=== PATIENT | female | born 1945 | race Caucasian/White ===

== ENCOUNTER 2017-03-21 09:52 | Outpatient (RCR) | payer OTHER, MEDICARE, SELFPAY | END 2017-04-06 23:59 | LOC: WC 09:52 | PROVIDERS: Family Provider Family Medicine; PCP Family Medicine; Visit Provider Nurse Practitioner | DX: Z09 Encounter for follow-up examination after completed treatment for conditions other than malignant neoplasm (principal) ==

== ENCOUNTER → 2017-08-22 11:58 | Outpatient (CLI) | payer MEDICARE, OTHER, SELFPAY ==
--- NOTE | 2017-08-22 12:55 | RAD_ITS ---
STUDY: SWALLOWING STUDY REASON FOR EXAM: Female, 71 years old. Dysphagia. TECHNIQUE: The examination was performed with Speech Pathology in attendance. Under fluoroscopic observation, the patient ingested thin barium, thick barium, barium pudding, and barium coated cracker. FLUOROSCOPY TIME: 1:55 minutes/seconds. 1261 fluoroscopic images were obtained. RADIOLOGIST INVOLVEMENT: Radiologist was present and providing direct supervision. COMPARISON: None. FINDINGS: The following was observed during swallowing of the various mixtures of barium: Prominence of the cricopharyngeus muscle. Thin Barium: Transient penetration with ingestion of thin liquids. Barium Pudding: There was no evidence of aspiration or laryngeal penetration. Barium Coated Cracker: There was no evidence of aspiration or laryngeal penetration. RAD/Swallowing Function w/Video IMPRESSION: Transient penetration with ingestion of thin liquids. Hypertrophy of the cricopharyngeus muscle. The swallow study findings were discussed with the patient by the speech pathologist at the conclusion of the examination. Please see speech pathology report for more information and recommendations. Electronically Signed: Saul Lackey MD at 15:01 EDT Tel [phone], Service support ,
--- NOTE | 2017-08-22 13:00 | SP.MBSS_ITS ---
PRIMARY / SECONDARY DIAGNOSIS: dysphagia (R13.10) REFERRING PHYSICIAN: NATHALY Johnson CURRENT DIET: regular textures, thin liquids DENTITION: WFL MENTAL STATUS: WNL RESPIRATORY STATUS: O2 via room air PREVIOUS MODIFIED BARIUM SWALLOW STUDY: none REASON FOR REFERRAL: Patient is a 71 year old female referred for a modified barium swallow (MBS) study to objectively assess the Patients oropharyngeal swallow function under fluoroscopy secondary to reported intermittent coughing possibly attributed to PO intake, occasional belching, occasional globus sensation, along with multiple additional complaints that are unrelated to oropharyngeal or pharyngoesophageal functioning (flatulence, graft pain / discomfort). MEDICAL HISTORY: Arthritis, methicillin susceptible staphylococcus aureus infection, type 2 diabetes mellitus, hypertension, suprapubic cellulitis, abdominal abscess, back problems, sepsis STUDY FINDINGS: Patient participated in a Modified Barium Swallow (MBS) study on 08/22/2017. Dr. Lackey was the radiologist present for this evaluation. This study was recorded in the lateral view and images were sent to PACs for storage. The following consistencies were presented to this patient for analysis of oropharyngeal swallow function: thin liquids, pudding, and a regular textured, Kamila Doone cookie. Results of the MBS are as follows: PENETRATION / ASPIRATION SCALE (DAS): 1 = does not enter airway 2 = enters airway/above vocal folds/ejected 3 = enters airway/above vocal folds/not ejected 4 = enters airway/contacts vocal folds/ejected 5 = enters airway/contacts vocal folds/not ejected 6 = enters airway/below vocal folds/ejected 7 = enters airway/below vocal folds/not ejected despite effort 8 = enters airway/below vocal folds/no effort PENETRATION / ASPIRATION SCALE (SCORE): Thin liquid - 5 mL tsp.: 1 Thin liquids via cup (single sip): 2 Thin liquids via cup (single sip): 2 Thin liquids via cup (single sip): 2 Thin liquids via cup (chin tuck): 1 Thin liquids via cup (chin tuck): 1 Thin liquids via cup (chin tuck): 2 Thin liquids via cup (chin tuck): 1 Pudding via spoon: 1 Regular textured cookie: 1 Thin liquids via cup (chin tuck): 1 Thin liquids via cup (chin tuck): 1 IMPRESSION: DIAGNOSIS: mild oropharyngeal dysphagia (R13.12) ORAL PHASE CHARACTERIZED BY: LABIAL SEAL: no labial escape TONGUE CONTROL DURING BOLUS MANIPULATION: cohesive bolus between tongue to palatal seal BOLUS PREPARATION / MASTICATION: timely and efficient chewing and mashing BOLUS TRANSPORT / LINGUAL MOTION: brisk tongue motion ORAL RESIDUE: trace residue lining oral structures PHARYNGEAL PHASE CHARACTERIZED BY: INITIATION OF PHARYNGEAL SWALLOW: bolus head in valleculae at first hyoid excursion SOFT PALATE ELEVATION: no bolus between soft palate and pharyngeal wall LARYNGEAL ELEVATION: complete superior movement of thyroid cartilage with complete approximation of arytenoids cartilage to epiglottic petiole ANTERIOR HYOID EXCURSION: partial anterior movement EPIGLOTTIC MOVEMENT: intermittent partial epiglottic inversion LARYNGEAL VESTIBULE CLOSURE AT HEIGHT OF SWALLOW: complete laryngeal vestibule closure with no air/contrast in laryngeal vestibule PHARYNGEAL STRIPPING WAVE: pharyngeal stripping wave present / diminished PHARYNGOESOPHAGEAL SEGMENT OPENING: partial distension and partial duration; partial obstruction of flow TONGUE BASE RETRACTION: trace column of contrast between tongue base and posterior pharyngeal wall PHARYNGEAL RESIDUE: intermittent collection of residue within or on pharyngeal structures; trace residue within or on pharyngeal structures (valleculae, to a lesser extent the pharyngoesophageal segment opening) ESOPHAGEAL PHASE CHARACTERIZED BY: ESOPHAGEAL BOLUS CLEARANCE IN THE UPRIGHT POSITION: could not view EFFECTS OF TREATMENT STRATEGIES ATTEMPTED: Chin tuck posture = effective Reduced bolus size = effective DIET TEXTURE RECOMMENDATIONS: Will recommend a regular textured, thin liquid diet. COMPENSATORY STRATEGIES RECOMMENDED: Chin tuck, reduced bolus volume, seated upright at 90 degrees during PO intake , INTERPRETATION OF RESULTS: Patient presents with mild oropharyngeal dysphagia (R13.12) likely secondary to primary presbyphagia. Oropharyngeal profile primarily marked by mildly discoordinated pharyngeal swallow onset timing resulting in suboptimal bolus location upon swallow onset; and mild pharyngeal dysmotility attributed to mild reductions in tongue based retraction, posterior pharyngeal stripping wave action, and pharyngoesophageal segment opening. Transient penetration noted during consumption of thin liquids, with sufficient laryngeal vestibule pressure generated to expel penetrated material. All deficits ameliorated with bolus volume adjustments and execution of the chin tuck posture. Prominent cricopharyngeal bar located at the C-6 level, no effect on pharyngoesophageal motility. No aspiration appreciated throughout trials, unable to definitively rule out silent aspiration. RECOMMENDATIONS: Patient able to comprehend and express recommended intake precautions detailed above with sufficient detail to suggest high likelihood of compliance. Provided brief overview of signs and symptoms of aspiration, with recommendations for the Patient to further discuss symptoms with PCP. No further skilled speech- language services warranted at this time targeting dysphagia. ADDITIONAL COMMENTS/RECOMMENDATIONS: Results and recommendations were discussed with the Patient immediately following MBS completion, with the Patient verbalizing understanding and agreement with all recommendations and education provided. IMAGE COUNT: 1261 G-CODES: SWALLOWING [id number] Current Status: CI SWALLOWING [id number] Goal Status: CI SWALLOWING [id number] Discharge Status: CI
== END ==
PROVIDERS: Family Provider Family Medicine; PCP Family Medicine; Visit Provider Nurse Practitioner Family
DX: R13.10 Dysphagia, unspecified (principal)
CPT/HCPCS: 74230; 92611; G8996; G8997; G8998

== ENCOUNTER 2019-05-25 07:48 | Inpatient (IN) | payer MEDICARE, OTHER, SELFPAY ==
[2019-05-25 07:50] VITALS: BP 178/71; PULSE 87; RESP 18; TEMP 36.5; O2SAT 94; BMI 24.4
--- NOTE | 2019-05-25 08:04 | RAD_ITS ---
STUDY: X-RAY CHEST REASON FOR EXAM: Female, 73 years old. Fell today TECHNIQUE: Single AP portable view of the chest. COMPARISON: None. FINDINGS: The lungs are clear and expanded. Scattered calcified granulomas. There is no demonstrated pleural abnormality. Normal size heart. Normal mediastinum and ulisses. Normal visualized pulmonary arteries. There is atherosclerotic tortuosity of the aortic arch and descending thoracic aorta. There are diffuse degenerative changes of the visualized thoracic spine. Normal visualized ribs, clavicles, and shoulders. There is no demonstrated abnormality of the visualized soft tissue structures of the upper abdomen. RAD/Chest 1 View IMPRESSION: No acute abnormality is seen. Electronically Signed: Saul Lackey, at 9:08 EST , Service support ,
--- NOTE | 2019-05-25 08:04 | CT_ITS ---
STUDY: CT BRAIN WITHOUT CONTRAST REASON FOR EXAM: Female, 73 years old. FALL THIS AM, HTN, DB RADIATION DOSAGE (If Supplied By Facility): CTDIvol = ( 44.99 ) mGy, DLP = ( 762.36 ) mGycm TECHNIQUE: Transaxial CT imaging of the brain was performed without administration of intravenous contrast material. Individualized dose optimization techniques were used for this CT. COMPARISON: No relevant priors. FINDINGS: Normal soft tissue structures. Normal calvarium. There is mild cerebral atrophy with widening of the extra-axial spaces and ventricular dilatation. There are areas of decreased attenuation within the white matter tracts of the supratentorial brain, consistent with microvascular disease changes. There are small punctate calcifications of the basal ganglia which are seen in the aging brain as a normal variant. Normal brainstem. Normal cerebellum. There is no intracranial hemorrhage. There are no findings of an acute ischemic infarction. Normal visualized paranasal sinuses. CT/Brain/Head without Contrast IMPRESSION: Chronic involutional changes of the brain. Electronically Signed: Saul Lackey, at 9:05 EST , Service support ,
--- NOTE | 2019-05-25 08:04 | RAD_ITS ---
STUDY: X-RAY - PELVIS AND LEFT HIP REASON FOR EXAM: Female, 73 years old. Left hip pain s/p fall TECHNIQUE: 3 views of the pelvis and hip. COMPARISON: None. FINDINGS: Transcervical fracture of the proximal left femoral neck with cephalic migration of the distal fracture fragment. RAD/HIP, UNI W/ Pelvis 2-3 Views IMPRESSION: Transverse subcapital fracture of the proximal left femur with cephalic migration of the distal fracture fragment. Electronically Signed: Saul Lackey, at 9:08 EST , Service support ,
--- NOTE | 2019-05-25 08:11 | ED.DCSUM_ITS ---
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 states he slipped and fell. She states that she struck the left side of her head but no loss of consciousness. She also injured the left hip. She notes the left knee is sore from a previous fall. EMS notes blood sugar 500 patient states that this is not uncommon for her. Past Medical History - Allergies and Home Meds Allergies/Adverse Reactions: Allergies shellfish derived Allergy (Severe, Verified 04/28/17 09:01) swelling in throat Penicillins [PCN] Allergy (Verified 04/28/17 09:01) Shortness of breath artificial sweeteners Adverse Reaction (Uncoded 04/14/17 13:51) headaches Primary Care Physician: Baljinder Vasquez III, MD [Primary Care Provider] - Surgical History: hysterectomy, - - Back surgery, . Smoking Status: Never smoker - Family History Maternal Family History: Family History (Last Reviewed 04/28/17 @ 09:01 by Toma Fuchs) Father Arthritis Mother Diabetes Sister Diabetes Family History: Reports: No pertinent history Paternal Family History: Family History (Last Reviewed 04/28/17 @ 09:01 by Toma Fuchs) Father Arthritis Mother Diabetes Sister Diabetes Family History: Reports: No pertinent history Review of Systems General: Denies: Chills, Fever, Sweats Eyes: Denies: Visual changes - bilaterally, Diplopia ENT: Denies: Rhinorrhea, Sore throat Cardiovascular: Denies: Chest pain, Palpitations Respiratory: Denies: Dyspnea, Cough, Dyspnea on exertion Gastrointestinal: Denies: Abdominal pain, Nausea, Vomiting, Diarrhea, Melena, Hematochezia Genitourinary: Denies: Dysuria, Hematuria, Frequency Musculoskeletal: Reports: Extremity Pain. Denies: Back pain Skin: Denies: Rash, Wounds Neurological: Denies: Headache, Weakness, Numbness Physical Exam Vital Signs/Narrative: Vital Signs Temp Pulse Resp BP Pulse Ox 05/25/19 07:50 97.7 F L 87 18 178/71 H 94 Inital Vital Signs reviewed: Yes General: Well nourished, Well developed, No Acute Distress Head: Normocephalic, Atraumatic Eyes: Perrl, EOMI ENT: Moist mucous membranes, No rhinorrhea Neck: Supple, Nontender Cardiovascular: Regular rate, Regular rhythm, No murmurs Respiratory: No distress, CTA bilaterally, Chest nontender Abdomen: Soft, Nontender, Nondistended, Normal bowel sounds : - - Patient has erythema likely consistent with a candidiasis skin infection. Back: Nontender, Normal Inspection Extremities: No edema, Tenderness - left hip TTP Skin: Normal color, No rash Neurological: Alert, Oriented x3, Cranial nerves II-XII grossly intact, Normal Strength, Normal Sensation Psychological: Normal affect, Normal Mood Diagnostic/Tx/Re-eval - Medical Decision Making Patient received a liter of fluids and insulin for her hyperglycemia. X-rays of the hip revealed femoral neck fracture. Patient feels morphine for pain. Plan is admission to the hospital. She has seen [facility] orthopedics in the past but nobody locally. Dr. Perkins is radiation therapy technologist for orthopedics ED Disposition - Plan for ED Patient: Disposition: Acute Care Hospital [facility] Diagnosis: Hip fracture, left, Scalp contusion, Diabetes mellitus with hyperglycemia, Candidiasis of skin Referrals: Baljinder Vasquez III, MD [Primary Care Provider] -
--- NOTE | 2019-05-25 08:14 | RAD_ITS ---
STUDY: X-RAY - LEFT KNEE REASON FOR EXAM: Female, 73 years old. Left knee pain s/p fall TECHNIQUE: 3 view(s) of the knee. COMPARISON: None. FINDINGS: Normal visualized distal femur. There is evidence of the localized osteopenia in the proximal shaft of the tibia. An infiltrative process should be ruled out. Normal proximal tibiofibular articulation. There is evidence of valgus deformity of the knee joint. Soft tissue swelling. RAD/Knee 1 or 2 Views IMPRESSION: Follow-up of this deformity of the knee joint with soft tissue swelling. Infiltrative process in the proximal shaft of the tibia. A neoplastic process should be ruled out. Electronically Signed: Saul Lackey, at 9:08 EST , Service support ,
[2019-05-25] MEDS: Ondansetron 4 MG/2 ML Vial IV (08:17)
[2019-05-25] MEDS: Morphine 4 MG/ML Syringe IV (08:17)
[2019-05-25 08:18] LABS: Absolute Lymphocyte Count 1.87 X10^3/uL (0.83-4.51); Basophil# 0.04 X10^3/uL; Basophil% 0.5 % (0-1); Eosinophil# 0.08 X10^3/uL; Hematocrit 35.6 % (37-47); Hemoglobin 12.3 g/dL (12.0-15.0); Lymphocyte # 1.87 X10^3/ul (4.0); Lymphocyte % 24.1 % (19-41); Mean Corp Hgb Conc 34.6 g/dL (32-36); Mean Corpuscular Hgb 29.3 pg (27.0-32.0); Mean Corpuscular Volume 84.8 fL (81-99); Mean Platelet Vol. 8.8 fl (6.2-12.0); Monocyte# 0.63 X10^3/uL; Monocyte% 8.1 % (0-10); NRBC Flagged by Analyzer 0 % (0-5); Neutrophil # 5.03 X10^3/uL (2.7-7.7); Platelet Count 257 K/mm3 (150-450); RBC Distribution Width CV 12.1 % (11.6-14.6); RBC Distribution Width SD 37.3 fl (35.1-43.9); White Blood Count 7.8 K/mm3 (4.4-11.0)
[2019-05-25 08:31] LABS: International Normalized Ratio 1.1; Partial Thromboplast Time 26.5 Seconds (24.1-36.2); Prothrombin Time (Protime)PT. 13.5 SECONDS (11.7-14.9)
[2019-05-25 08:37] LABS: ALB/GLOB Ratio 0.8 RATIO (0.9-2.4); AST(SGOT) 16 U/L (15-37); Alanine Aminotransfer ALT/SGPT 25 U/L (13-56); Albumin, Serum 3.1 g/dL (3.2-5.0); Alkaline Phosphatase 108 U/L (45-117); Anion Gap 7 (5-15); BUN 9 mg/dL (7-18); BUN/Creat Ratio 9.6 RATIO (10-20); Calcium,Total 9.5 mg/dL (8.5-10.1); Chloride 103 mmol/L (98-107); Creatinine, Serum 0.94 mg/dL (0.55-1.02); EST Glomerular Filtration Rate 62 mL/min (>60); Est Glom Filt Rate - Afr Amer 75 mL/min (>60); Estimated Creatinine Clearance 43.43 ml/min; Globulin 4.1 g/dL (2.2-4.2); Glucose 552 mg/dL (74-106); Potassium 3.5 mmol/L (3.5-5.1); Protein, Total 7.2 g/dL (6.4-8.2); Sodium Level 138 mmol/L (136-145)
--- NOTE | 2019-05-25 08:50 | EKG12_ITS ---
Test Reason : PRE OP Blood Pressure : / mmHG Vent. Rate : 079 BPM Atrial Rate : 079 BPM P-R Int : 182 ms QRS Dur : 080 ms QT Int : 394 ms P-R-T Axes : 054 040 054 degrees QTc Int : 451 ms Normal sinus rhythm Low voltage QRS Borderline ECG Confirmed by VERA HOLT ([id number]), assistant film editor MICHAEL DOZIER ([id number]) on 05/27/2019 9:34:37 AM Referred By: LAMBERT Confirmed By:VERA HOLT
[2019-05-25] MEDS: Insulin Lispro 100 UNIT/ML INSULN.PEN 10 UNIT SC (09:31)
[2019-05-25] MEDS: 0.9% Normal Saline 1,000 ML 999 ML IV (09:31)
--- NOTE | 2019-05-25 10:02 | NURSING ---
DR LINO PAGED FROM [phone] DR LINO RETURNED CALL [id number]
--- NOTE | 2019-05-25 10:37 | NURSING ---
MED SURG PAINTSIL LT HIP FX
--- NOTE | 2019-05-25 10:37 | NURSING ---
DR LINO IN ROOM
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
[2019-05-25 10:43] VITALS: PULSE 78; RESP 18; O2SAT 96
[2019-05-25 11:36] LABS: Bedside Glucose 300 mg/dL (70-110)
[2019-05-25 12:26] VITALS: BMI 22.6
[2019-05-25 12:36] VITALS: BP 164/82; PULSE 89; RESP 16; TEMP 36.8; O2SAT 95
[2019-05-25] MEDS: 0.9% Normal Saline 1,000 ML 125 ML IV ×2 (12:51→22:08)
[2019-05-25] MEDS: Morphine 2 MG/ML Syringe IV ×2 (12:51→22:13)
[2019-05-25] MEDS: Insulin Lispro 100 UNIT/ML INSULN.PEN SC ×3 (12:52→22:12)
[2019-05-25] MEDS: Nystatin Ointment 1 APPLIC TOPICAL ×2 (14:35→22:14)
[2019-05-25] MEDS: Heparin Injection (Vial) 5,000 UNIT/ML VIAL 5000 UNIT SC ×2 (14:36→22:13)
[2019-05-25 14:46] VITALS: BP 161/74; PULSE 98; RESP 16; TEMP 36.4; O2SAT 94
[2019-05-25 15:25] LABS: Bacteria 0 SEEN /hpf (None Seen); Mucous, Urine 0 SEEN /hpf (<or=2+); Red Blood Cells-Urine 0 SEEN /hpf (0-5); Squamous Epithelial Cells - UA 0 SEEN /hpf (5-10)
[2019-05-25 15:37] LABS: Color, Urine Yellow (Yellow); Glucose, Dipstick 1000 mg/dl (Normal); Ketone-Dipstick 5 mg/dl (Negative); Leukocyte Esterase-Dipstick 500 /ul (Negative); Nitrite-Dipstick Positive (Negative); Occult Blood-Urine 150 /ul (Negative); Protein-Dipstick 100 mg/dl (Negative); Specific Gravity, Urine 1.015 (1.002-1.030); Urine Bilirubin Dipstick Negative (Negative); Urine Clarity Cloudy (Clear); Urine Urobilinogen Normal (Normal)
[2019-05-25] MEDS: Insulin Lispro 100 UNIT/ML INSULN.PEN 23 UNIT SC (15:44)
[2019-05-25] MEDS: Ceftriaxone 1 GM/50 ML BAG IV (15:48)
[2019-05-25 15:51] LABS: Bedside Glucose 392 mg/dL (70-110)
[2019-05-25 16:09] LABS: White Blood Cells >100 SEEN /hpf (0-5)
[2019-05-25 17:01] LABS: Hemoglobin A1c 14.8 % (4.2-6.3)
[2019-05-25 21:37] VITALS: BP 146/53; PULSE 96; RESP 16; TEMP 36.9; O2SAT 93
[2019-05-25 22:26] LABS: Bedside Glucose 311 mg/dL (70-110)
[2019-05-26] VITALS (13 sets, daily range): BP systolic 130–153; BP diastolic 58–77; PULSE 76–98; RESP 16–20; TEMP 36.3–37.7; O2SAT 88–99; BMI 23.8; BMI 22.6
[2019-05-26 00:30] LABS: Bedside Glucose 267 mg/dL (70-110)
[2019-05-26] MEDS: Nystatin Ointment 1 APPLIC TOPICAL ×3 (05:28→21:49)
[2019-05-26] MEDS: 0.9% Saline Lock 10 ML Syringe IV ×3 (05:29→18:08)
[2019-05-26] MEDS: 0.9% Normal Saline 1,000 ML 125 ML IV ×3 (05:29→20:57)
[2019-05-26 05:36] LABS: Absolute Lymphocyte Count 2.12 X10^3/uL (0.83-4.51); Absolute Neutrophil Count 7.3 X10^3/uL (2.0-7.7); Basophil# 0.03 X10^3/uL; Basophil% 0.3 % (0-1); Eosinophil# 0.04 X10^3/uL; Eosinophils% 0.4 % (0-5); Hematocrit 32.5 % (37-47); Hemoglobin 11.1 g/dL (12.0-15.0); Lymphocyte # 2.12 X10^3/ul (4.0); Lymphocyte % 20.8 % (19-41); Mean Corp Hgb Conc 34.2 g/dL (32-36); Mean Corpuscular Hgb 29.1 pg (27.0-32.0); Mean Corpuscular Volume 85.3 fL (81-99); Mean Platelet Vol. 9.4 fl (6.2-12.0); Monocyte# 0.61 X10^3/uL; NRBC Flagged by Analyzer 0 % (0-5); Neutrophil # 7.34 X10^3/uL (2.7-7.7); Neutrophil % 72.2 % (47-70); Platelet Count 264 K/mm3 (150-450); RBC Distribution Width CV 12.4 % (11.6-14.6); RBC Distribution Width SD 38.5 fl (35.1-43.9); Red Blood Count 3.81 M/mm3 (4.2-5.4); White Blood Count 10.2 K/mm3 (4.4-11.0)
[2019-05-26 05:59] LABS: ALB/GLOB Ratio 0.6 RATIO (0.9-2.4); AST(SGOT) 19 U/L (15-37); Alanine Aminotransfer ALT/SGPT 22 U/L (13-56); Albumin, Serum 2.4 g/dL (3.2-5.0); Alkaline Phosphatase 90 U/L (45-117); Anion Gap 5 (5-15); BUN 10 mg/dL (7-18); BUN/Creat Ratio 17.2 RATIO (10-20); Calcium,Total 8.7 mg/dL (8.5-10.1); Chloride 107 mmol/L (98-107); Creatinine, Serum 0.58 mg/dL (0.55-1.02); EST Glomerular Filtration Rate 108 mL/min (>60); Est Glom Filt Rate - Afr Amer 130 mL/min (>60); Estimated Creatinine Clearance 40.83 ml/min; Globulin 3.7 g/dL (2.2-4.2); Glucose 240 mg/dL (74-106); Protein, Total 6.1 g/dL (6.4-8.2); Sodium Level 139 mmol/L (136-145)
[2019-05-26 06:46] LABS: Bedside Glucose 219 mg/dL (70-110)
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
[2019-05-26] MEDS: Morphine 2 MG/ML Syringe IV (07:32)
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
[2019-05-26] MEDS: Insulin Lispro 100 UNIT/ML INSULN.PEN SC ×2 (08:53→18:07)
[2019-05-26 09:01] LABS: Bedside Glucose 234 mg/dL (70-110)
[2019-05-26] MEDS: Potassium Chloride 10mEq/100mL 10 MEQ/100 ML IV.SOLN. 100 MEQ IV BOLUS ×4 (09:52→18:00)
[2019-05-26] MEDS: Ceftriaxone 1 GM/50 ML BAG IV (09:57)
[2019-05-26 10:11] LABS: Bedside Glucose 210 mg/dL (70-110)
--- NOTE | 2019-05-26 11:15 | CASEMGMT ---
BRIGITTE MARTINES Face to Face with patient for initial transition planning/care coordination assessment. RN CM introduced self and role at [facility]. Patient lying in bed, alert and oriented. Patient willing to participate in assessment and is able to answer all questions appropriately. Care providers, pharmacy, and demographics verified. Patient wishes to discharge home with HHC if she is able, willing to go to SNF or [facility] if needed. Patient to have surgery today for hip fracture. Patient states she has no further needs or concerns at this time. CM to follow for discharge planning needs that may arise. PCP: Christina Specialists: None Preferred Pharmacy: [facility] Insurance: [employer] Prescription Benefit: yes Living Will/HPOA: none LNOK: Living Arrangements: Patient lives with in 1.5 story home with bed and bath on main level. 3 steps and railing to enter the home. Patient independent at home prior to surgery. Transportation: self/ DME/HHC: Patient has shower chair, raised toilet seat, cane, walker, grab bars at home. Patient having surgery today and will follow PT/OT to determine discharge disposition. Disposition Plan: TBD pending course of treatment. Edelmira MORA, RN, CM
[2019-05-26 12:00] LABS: Bedside Glucose 192 mg/dL (70-110)
--- NOTE | 2019-05-26 12:05 | NURSING ---
pt transported to at this time via bed. IV pump running. pre-op antibiotic with patient. Student nurses, Freda and Miguel, at bedside.
--- NOTE | 2019-05-26 12:06 | NURSING ---
Student documentation reviewed.
--- NOTE | 2019-05-26 13:00 | HIP_PTH ---
PATIENT: GUERA FAUST LOC: MS3 U#:[id number] AGE/SX: 73/F ROOM: MS309 RE05/25/[address]: Dr. Chel Lee MD : [id number] BED: 1 DIS: 05/28/2019 SPEC #: [id number] RECD: 05/26/19 16:27 STATUS: JULIO REAlecia #: [id number] SHASHI: 05/26/19 13:[address]: Fermin Perkins DEPT: SURGICAL PATHOLOGY RECD BY: Mal Lima ENTERED: 05/27/19 07:52 SP TYPE: TOTAL HIP OTHR DR: MD Dr. Baljinder Herring III, MD Tissues: Hip, NOS Procedures: Decalcification bone/plaque Surgery Specimen Level IV HEADER OPERATION: Left hip hemiarthroplasty PRE-OP DIAGNOSIS: Left hip fracture TISSUE SUBMITTED: Left femoral head MICROSCOPIC DIAGNOSIS Left femoral head, hemiarthroplasty: Femoral head and detached piece of bone with focal area of hemorrhage, clinically left hip fracture. A piece of dense fibroconnective tissue with reactive changes. JASKARAN:heather 06/02/19 MICROSCOPIC DESCRIPTION Slides are reviewed. GROSS DESCRIPTION Received is one container designated left femoral head. The specimen consists of a femoral head measuring 4 x 4 x 3.5 cm. The articular surface is smooth. The resection margin is irregular and hemorrhagic. Also present at the top of femoral head is a piece of camara soft tissue measuring 2.5 x 0.3 x 0.1 cm. Also present in the container is a detached piece of bone measuring 3.5 x 1.5 x 2.5 cm. Mechanotherapist sections are submitted in three cassettes as follows: 1 - soft tissue, entire submitted, 2??detached piece of bone, 3 - femoral head. Cassettes 2 & 3 are submitted after decalcification. / JASKARAN:heather 05/27/19 TC:5 CPT: 38848, [id number]
--- NOTE | 2019-05-26 13:23 | CHAPLAIN ---
Type of Pastoral Visit _x__ Initial Visit ___ Follow-up Visit ___ On-call Visit ___ General Patient Visit ___ Spiritual Assessment ___ Family Conference ___ Bereavement ___ Rapid Response ___ Code Blue ___ Other (describe below) Pastoral Care Referral From _x__ Patient ___ Family ___ Nurse ___ Physician ___ Linseed Oil Boiler ___ Enrober Tender ___ Other (describe below) Sacrament/Intervention _x__ Active listening ___ Anointing ___ Gnosticism ___ Bereavement ___ Communion ___ Yelena exploration ___ ___ Life review _x__ Prayer ___ Reconciliation ___ Sacrament of Sick _x__ Supportive presence ___ Wedding ___ Other (describe below) Pastoral Comments patient is getting readied for surgery; pt and spouse in room; pt welcomes prayer for surgery and follow up support
[2019-05-26] MEDS: Vancomycin IV 1,000 MG/200 ML BAG 200 MG IV (13:40)
[2019-05-26 15:06] LABS: Bedside Glucose 258 mg/dL (70-110)
--- NOTE | 2019-05-26 15:06 | PCM.OPRPT ---
Report of Operation Date of Procedure: 05/26/19 Description of Surgical Findings:: Preoperative diagnosis: Left hip femoral neck fracture displaced Postoperative diagnosis: Same Procedure: Left hip hemiarthroplasty Implants: [place] Accolade II stem size 5 132 degree neck angle 0 neck length 43 mm outer diameter bipolar head Anesthesia: General l EBL: 100 cc Complications: None Condition: Stable to PACU Indication for procedure: This is a 73-year-old female who has had balance issues sustained a ground-level fall sustained left displaced femoral neck fracture. plans for definitive hemiarthroplasty were discussed including risks benefits and alternatives of the procedure were reviewed with the patient including risk of bleeding infection nerve artery tissue damage need for further surgery continue pain postoperative hip precaution restrictions leg length discrepancy and dislocation. Procedure: Patient was met in the preoperative holding area once again the operative extremity was identified by both patient and physician and was marked. Patient was met by anesthesia and brought to the operating room where anesthesia was started . The patient was then positioned in the lateral decubitus position on a well-padded pegboard with an axillary roll. All bony prominences were checked and padded. The patient was prepped and draped in the usual sterile fashion. A timeout was called to ensure the proper patient procedure and extremity were being contemplated. Anatomic landmarks were palpated and marked for a standard posterior lateral approach. A timeout was called to ensure the proper patient procedure and extremity were being contemplated. A 10 blade scalpel was used to make a posterior incision through the skin and subcutaneous tissue. In retractors were used and electrocautery was used to maintain meticulous hemostasis and dissect full-thickness flaps until the gluteal fascia was reached. The gluteal fascia was incised in line with the gluteal fibers. The bursal tissue was then freed from the underside and a Charnley retractor was placed. The fatpad was elevated off of the external rotators with electrocautery and the external rotators were dissected off of the greater trochanter including the piriformis and were tagged with #1 Ethibond for later repair. The joint capsule opened with posterior trapdoor technique. A femoral neck cutting guide was used to annelise the neck with a Bovie and an oscillating saw was used to complete the femoral neck cut. the fracture was visualized and with the use of a corkscrew and a skid the femoral head was removed and sized. We then trialed with the matching sizes . Hohmann was placed around the lesser trochanter. A femoral elevator was used. As well as a pointed wide Hohmann around the lesser trochanter and a Hohmann to help retract the gluteus medius. A box chisel was used to remove excess lateral neck followed by a canal finder and a lateralizing reamer. This was followed by sequential broaches. Attention was made of the version within the canal. Once the final broach was seated we then trialed and reduced the hip it was determined that a 132 degree neck angle with a 0 neck length was the appropriate size. We then checked stability with shuck testing as well as flexion and interminal rotation then proceeded with hip extension and checked leg lengths at the knees and heels. At this point trials were removed. The femoral stem was inserted. We re-trialed and then proceeded to impact the femoral head onto the Valerio taper. We then surgically reduce the hip check stability again and leg lengths and were satisfied. irricept rinse was allowed to sit for 1 minutes while everyone changed their gloves. Thorough irrigation was performed. Followed by closure of the external rotators with #2 FiberWire followed by closure of gluteal fascia with #1 Ethibond. 0 Vicryl fat stitches and 2-0 Vicryl subcutaneous stitches and shanae in the skin. Dressing was applied in the form of silverlon dressing and an abduction pillow was placed. Patient tolerated the procedure well there was no intraoperative complications all counts were correct and the patient was brought back to the PACU in stable condition Of note while under anesthesia the patient's left knee was evaluated there is no ligament laxity she did have a fixed valgus deformity but no collateral or cruciate instability no joint effusion with good range of motion
--- NOTE | 2019-05-26 15:20 | RAD_ITS ---
STUDY: X-RAY - PELVIS AND LEFT HIP REASON FOR EXAM: Female, 73 years old. post op left hip TECHNIQUE: 2 views of the pelvis and hip. COMPARISON: None. FINDINGS: There is a non-specific bowel gas pattern. Normal visualized soft tissue structures. Normal bilateral iliac wings, sacroiliac joints and visualized sacrum. Normal bilateral superior and inferior pubic rami. Normal pubic symphysis. Normal bilateral ischial tuberosities. Left hip replacement is in radiographic alignment with expected soft tissue swelling, air and surgical skin shanae. RAD/Hip Min 2 Views (Portable) IMPRESSION: 1. Left hip replacement in radiographic alignment. Expected operative changes. Electronically Signed: Nikolay Chung MD ([place]) at 19:43 EST , Service support ,
--- NOTE | 2019-05-26 15:41 | MRI_ITS ---
STUDY: MRI LOWER EXTREMITY LEFT TIBIA/FIBULA WITH AND WITHOUT CONTRAST REASON FOR EXAM: Female, 73 years old. ABNORMAL XRAY, ''INFILTRATED PROCESS PROXIMAL TIBIA''. Recent fall with hip fracture. TECHNIQUE: Standardized fat and water weighted pulse sequences were obtained in all 3 orthogonal planes, post contrast administration. IV DOTAREM 13CC was administered for the contrast portion of the examination. COMPARISON: X-ray knee May 25, 2019 FINDINGS: There is marrow edema with nondisplaced fracture of the patella, series 6 image 1 and 2. There is marrow edema of the anterior proximal tibia, series 9 image 14 and 15/. There is coarsening of the trabecular markings of the anterior cortex of the shaft of the tibia with possible pagetoid change, series 8 image 14/. Normal anterior, lateral, and posterior calf compartments, with normal muscles, crural fascia and intermuscular septa. Normal subcutis adipose space, without subcutis adipose space edema. There is joint effusion at the knee with popliteal cyst. There is no abnormal contrast enhancement. MRI/Lower Ext No Joint W/WO Cont IMPRESSION: Fracture of the patella. Bone bruise of the proximal tibia. 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 No enhancing mass. Electronically Signed: Roberto Carlos David MD at 22:03 EST , Service support ,
[2019-05-26] MEDS: HYDROmorphone 0.5 MG/0.5 ML SYRINGE IV (16:18)
--- NOTE | 2019-05-26 16:24 | NURSING ---
pt transported off unit for MRI via bed
[2019-05-26 18:20] LABS: Bedside Glucose 244 mg/dL (70-110)
[2019-05-26] MEDS: Heparin Injection (Vial) 5,000 UNIT/ML VIAL 5000 UNIT SC (21:54)
[2019-05-26] MEDS: Senna/Docusate Sodium 1 Tablet 2 TABLET PO (21:59)
[2019-05-26] MEDS: oxyCODONE 5 MG Tablet PO (22:02)
[2019-05-27] VITALS (7 sets, daily range): BP systolic 120–142; BP diastolic 54–77; PULSE 55–103; RESP 16–18; TEMP 36.8–37.1; O2SAT 90–96
[2019-05-27] MEDS: Insulin Lispro 100 UNIT/ML INSULN.PEN SC ×5 (00:15→22:10)
[2019-05-27 00:20] LABS: Bedside Glucose 225 mg/dL (70-110)
[2019-05-27] MEDS: oxyCODONE 5 MG Tablet PO ×2 (02:01→06:06)
[2019-05-27 05:40] LABS: Hematocrit 30.7 % (37-47); Hemoglobin 10.8 g/dL (12.0-15.0); Mean Corp Hgb Conc 35.2 g/dL (32-36); Mean Corpuscular Hgb 30.2 pg (27.0-32.0); Mean Corpuscular Volume 85.8 fL (81-99); Mean Platelet Vol. 9.1 fl (6.2-12.0); Platelet Count 218 K/mm3 (150-450); RBC Distribution Width CV 12.4 % (11.6-14.6); RBC Distribution Width SD 38.7 fl (35.1-43.9); Red Blood Count 3.58 M/mm3 (4.2-5.4); White Blood Count 13.7 K/mm3 (4.4-11.0)
[2019-05-27 05:51] LABS: Anion Gap 6 (5-15); BUN 5 mg/dL (7-18); BUN/Creat Ratio 11.5 RATIO (10-20); Chloride 107 mmol/L (98-107); Creatinine, Serum 0.43 mg/dL (0.55-1.02); EST Glomerular Filtration Rate 151 mL/min (>60); Est Glom Filt Rate - Afr Amer 182 mL/min (>60); Estimated Creatinine Clearance 40.83 ml/min; Glucose 210 mg/dL (74-106); Potassium 3.5 mmol/L (3.5-5.1); Sodium Level 138 mmol/L (136-145)
[2019-05-27] MEDS: 0.9% Saline Lock 10 ML Syringe IV (06:08)
[2019-05-27] MEDS: Heparin Injection (Vial) 5,000 UNIT/ML VIAL 5000 UNIT SC ×3 (06:09→22:13)
[2019-05-27] MEDS: Nystatin Ointment 1 APPLIC TOPICAL ×3 (06:10→22:15)
[2019-05-27 06:26] LABS: Bedside Glucose 207 mg/dL (70-110)
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
--- NOTE | 2019-05-27 07:57 | CT_ITS ---
STUDY: CT LEFT KNEE WITHOUT CONTRAST REASON FOR EXAM: Female, 73 years old. QUESTIONABLE PATELLA FRACTURE ON MRI, FELL 05/25, LEFT HIP FX RADIATION DOSAGE (If Supplied By Facility): CTDIvol = ( 15.35 ) mGy, DLP = ( 315.38 ) mGycm TECHNIQUE: Transaxial CT imaging of the knee was performed. Coronal and sagittal images were reformatted. Individualized dose optimization techniques were used for this CT. COMPARISON: X-ray May 25, 2019 FINDINGS: Demineralization of the medial femoral condyle and medial tibial plateau. There is moderate narrowing and mild spurring of the articular joint space of the medial knee compartment. Demineralization of the lateral femoral condyle and lateral tibial plateau. There is preservation of the articular joint space of the lateral knee compartment. There is acute appearing fracture of the posterior aspect of the tibial intercondylar eminence at the insertion of the posterior cruciate ligament, series 3 image 44/66. There is partial healed nondisplaced fracture of uncertain age of the patella, series 3 images 31/66 and 32/66. There is narrowing and spurring of the patellofemoral articulation. Normal proximal tibiofibular articulation. There is moderate joint effusion. There is 4.1 cm popliteal cyst. The quadriceps tendon is grossly normal. The patellar tendon is grossly normal. Normal Hoffa''s fat pad. There are atherosclerotic calcifications. CT/Extremity Lower without Contra IMPRESSION: Fracture of the proximal tibia at the insertion of the posterior cruciate ligament. Healing fracture of the patella. Degenerative change. Joint effusion with popliteal cyst. Electronically Signed: Roberto Carlos David MD at 9:16 EST , Service support ,
--- NOTE | 2019-05-27 08:01 | PCM.PN.ORT ---
Patient Problems: Active and Suspected Problems (Last Reviewed 04/28/17 @ 09:01 by Toma Fuchs) Hip fracture, left (Acute) Scalp contusion (Acute) Diabetes mellitus with hyperglycemia (Acute) Candidiasis of skin (Acute) Subjective: Doing okay pain controlled no acute complaints - Physical Exam Vitals/I&O's: Vital Signs Temp Pulse Resp BP Pulse Ox 98.7 F 97 16 142/64 H 94 05/27/19 07:26 05/27/19 07:26 05/27/19 07:26 05/27/19 07:26 05/27/19 07:26 Oxygen Flow Rate (L/min) 2 Oxygen Delivery Method Room Air Weight: 152 lb 5.431 oz Body Mass Index (BMI) 23.8 Finger Stick Blood Glucose 258 Intake and Output for Last 24 Hours 05/25/19 05/26/19 05/27/19 23:59 23:59 23:59 Intake Total 2650.00 / 2850.00 3622.16 / 3622.16 1087.25 / 1087.25 Output Total 650 / 1750 2350 / 2350 450 / 450 Balance 2000.00 / 1100.00 1272.16 / 1272.16 637.25 / 637.25 General: Alert, Cooperative, No apparent distress Extremities: - - Neurovascular intact left lower extremity dressing clean dry and intact compartment soft palpable pedal pulses. There is no joint effusion of the knee she is tender on the patella however is equally tender over medial and lateral femoral condyles and tibial plateau. Microbiology Past 72 Hours 05/25/19 15:15 Urine Catheter - Cochran Urine Culture - Preliminary GNR lactose irrigation equipment installer Laboratory Results 05/26/19 08:52: POC Glucose 234 H 05/26/19 10:03: POC Glucose 210 H 05/26/19 11:48: POC Glucose 192 H 05/26/19 15:01: POC Glucose 258 H 05/26/19 18:06: POC Glucose 244 H 05/27/19 00:14: POC Glucose 225 H 05/27/19 05:20: Sodium 138, Potassium 3.5, Chloride 107, Carbon Dioxide 25.0, Anion Gap 6, BUN 5 L, Creatinine 0.43 L, Estim Creat Clear Calc 40.83, Est GFR (MDRD) Af Amer 182, Est GFR (MDRD) Non-Af 151, BUN/Creatinine Ratio 11.5, Glucose 210 H, Calcium 8.0 L 05/27/19 05:20: WBC 13.7 H, RBC 3.58 L, Hgb 10.8 L, Hct 30.7 L, MCV 85.8, MCH 30.2, MCHC 35.2, RDW Std Deviation 38.7, RDW Coeff of Feng 12.4, Plt Count 218, MPV 9.1 05/27/19 06:13: POC Glucose 207 H Current Medications Acetaminophen (Tylenol) 650 mg PO Q6H PRN PRN PRN Reason: Pain Score 1-10/Temp > 100.7 F Al Hydroxide/Mg Hydroxide (Mylanta Ii) 30 ml PO Q6H PRN PRN PRN Reason: Gastric Burning Glucagon () 1 mg IM .X1 PRN PRN Reason: Hypoglycemia Heparin Sodium (Porcine) (Heparin Na) 5,000 unit SC Q8 [facility] Last Admin: 05/27/19 06:09 Dose: 5,000 unit Documented by: Hydralazine HCl (Apresoline Iv) 5 mg IV Q4H PRN PRN PRN Reason: BLOOD PRESSURE Hydromorphone HCl (Dilaudid Inj) 0.5 mg IV Q2H PRN PRN PRN Reason: Pain Score 6-10/10 Last Admin: 05/26/19 16:18 Dose: 0.5 mg Documented by: Dextrose (Dextrose 10%-Water) 250 mls @ 999 mls/hr IV .Q16M PRN; Protocol PRN Reason: HYPOGLYCEMIA Ceftriaxone Sodium (Rocephin) 1 gm in 50 mls @ 100 mls/hr IV Q24 [facility] Last Infusion: 05/26/19 10:27 Dose: Infused Documented by: Insulin Human Lispro (Humalog Kwikpen (Bkc)) 0 unit SC ACHS [facility]; Protocol Lactobacillus Acidophilus (Acidophilus) 1 tablet PO BID [facility] Last Admin: 05/26/19 21:59 Dose: 1 tablet Documented by: Lisinopril (Zestril) 5 mg PO DAILY [facility] Last Admin: 05/26/19 08:55 Dose: Not Given Documented by: Nitroglycerin (Nitrostat) 0.4 mg SUBLINGUAL Q5M PRN PRN Reason: CARDIAC/CHEST PAIN Nutritional Formula ([place] - [place] Flavor) [facility] Last Admin: 05/26/19 17:38 Dose: Not Given Documented by: Nystatin (Mycostatin) 1 applic TOPICAL TID [facility]; Protocol Last Admin: 05/27/19 06:10 Dose: 1 applicatio Documented by: Ondansetron HCl (Zofran) 4 mg IV Q8H PRN PRN PRN Reason: NAUSEA/VOMITING Oxycodone HCl (Oxyir) 5 - 10 mg PO Q4H PRN PRN PRN Reason: Pain Score 4-10/10 Last Admin: 05/27/19 06:06 Dose: 10 mg Documented by: Polyethylene Glycol (Miralax) 17 gm PO DAILY [facility] Last Admin: 05/26/19 08:55 Dose: Not Given Documented by: Polysaccharide Iron Complex (Ferrex 150) [facility] Last Admin: 05/26/19 08:54 Dose: Not Given Documented by: Senna/Docusate Sodium (Senokot-S, Ynes-Colace) 2 tablet PO BID [facility] Last Admin: 05/26/19 21:59 Dose: 2 tablet Documented by: Sodium Chloride () 10 - 40 ml IV UD PRN PRN Reason: SALINE FLUSH Last Admin: 05/27/19 06:08 Dose: 10 ml Documented by: Medical Necessity - Tobacco Use Smoking Status: Never smoker Tobacco Use: Non-smoker Assessment/Plan All Active Problems (Last Reviewed 04/28/17 @ 09:01 by Toma Fuchs) Hip fracture, left (Acute) Scalp contusion (Acute) Diabetes mellitus with hyperglycemia (Acute) Candidiasis of skin (Acute) Right groin wound (Acute) MSSA (methicillin susceptible Staphylococcus aureus) infection (Acute) Cellulitis of right groin (Acute) Abscess (Acute) Phlegmon (Acute) Suprapubic cellulitis/abscess (Acute) Sepsis (Acute) DKA (diabetic ketoacidoses) (Acute) Postop day #1 left hip hemiarthroplasty DVT prophylaxis SCDs MAGDIEL hose Eliquis for 3 weeks postop Hip precautions precautions Dressing to be removed 72 hours postop and begin showering daily at that time with daily dressing changes [place] to be removed 2 weeks MRI left tib-fib does not show any concerning neoplastic lesions of proximal tibia however does show a bone bruise, in addition on the most proximal extent of the study there is question of a vertical patellar fracture however this is incompletely visualized. Will order dedicated CT the knee to better eval. In the meantime she may be weightbearing as tolerated as long as she wears knee immobilizer while ambulating she may remove knee immobilizer and bend knee when not ambulating or bearing weight but should be reapplied before attempting to stand. Further recommendations following CT scan
--- NOTE | 2019-05-27 09:25 | CASEMGMT ---
Social Work Note Pt's requesting to speak to this worker. MARCELLUS met with pt's Enrike. Enrike states that he and his son have an appointment with this worker today at 3:00pm. MARCELLUS informed Enrike that this worker didn't know of any appointments so this worker is not sure who made the appointment. MARCELLUS informed Enrike that this worker has a meeting until 3:00pm so likely will not be available until after 3:00pm. Enrike states that his son is driving from [place] at 2:00pm to come to [facility] so anytime after 3:00pm will be ok. SW to meet with pt, pt's Enrike and pt's son today at 3:00pm to discuss discharge planning. Plan: TBD. Edelmira Garvey BATCH OR CONTINUOUS STILL OPERATOR, COIL CUTTER
[2019-05-27] MEDS: Ceftriaxone 1 GM/50 ML BAG IV (10:49)
[2019-05-27] MEDS: Senna/Docusate Sodium 1 Tablet 2 TABLET PO ×2 (10:50→22:15)
[2019-05-27] MEDS: Polyethylene Glycol 3350 17 GM PACKET PO (10:50)
[2019-05-27] MEDS: Iron Polysaccharide Complex 150 MG CAPSULE PO (10:51)
[2019-05-27] MEDS: Lisinopril 5 MG Tablet PO (10:51)
[2019-05-27 11:16] LABS: Bedside Glucose 226 mg/dL (70-110)
[2019-05-27] MEDS: Acetaminophen 500 MG Tablet 1000 MG PO ×2 (13:31→22:15)
--- NOTE | 2019-05-27 15:47 | CASEMGMT ---
Social Work Note Pt's Enrike and pt's son Paradise present at [facility] an requesting to speak to MARCELLUS. MARCELLUS met with Enrike and Paradise. Saman states pt has had a decline in home and Enrike is not able to provide care to pt at this time and are wanting pt to go to SNF. MARCELLUS explained Medicare guidelines and coverage days at SNF. SW provided Enrike and Saman with list of SNF and Medicare ratings for SNF. Enrike states first choice is [facility] ([facility]) second choice is [facility] and third choice is [facility]. MARCELLUS also explained Medicaid coverage in SNF and Enrike requests Medicaid application to complete for pt. MARCELLUS provided Enrike with Medicaid Application to complete for pt. MARCELLUS explained that this worker is not sure if [facility] will get back to this worker today but can keep Enrike or Paradise updated. Enrike provided cell phone number [phone] and Paradise provided number [phone]. MARCELLUS placed a call to Noris at [facility] and left message regarding referral. MARCELLUS faxed referral to [facility]. Plan: SNF tomorrow pending acceptance and pre-cert Edelmira Garvey REFRIGERATED NATIONAL TRUCK DRIVER, BOX PRESS OPERATOR
[2019-05-27 17:10] LABS: Bedside Glucose 286 mg/dL (70-110)
--- NOTE | 2019-05-27 21:16 | NURSING ---
Bladder scan pt for 521. Pt unable to void. Already an order to straight cath q 8 hours for inability to void. Explained procdure to pt and pt verbalized understanding. Straight cath pt with the help of charge nurse. Output 550 ml of yellow urine. Pt tolerated well.
[2019-05-27 22:41] LABS: Bedside Glucose 306 mg/dL (70-110)
[2019-05-28 04:57] VITALS: BP 129/60; PULSE 90; RESP 18; TEMP 36.7; O2SAT 95
--- NOTE | 2019-05-28 05:02 | NURSING ---
Straight cathed pt per order with the help of rn charge. Pt tolerated well. Output =575 ml clear yellow urine
[2019-05-28] MEDS: Acetaminophen 500 MG Tablet 1000 MG PO ×2 (05:08→14:23)
[2019-05-28] MEDS: Nystatin Ointment 1 APPLIC TOPICAL ×2 (05:08→14:23)
[2019-05-28] MEDS: Heparin Injection (Vial) 5,000 UNIT/ML VIAL 5000 UNIT SC (05:09)
[2019-05-28 05:54] LABS: Absolute Lymphocyte Count 1.93 X10^3/uL (0.83-4.51); Absolute Neutrophil Count 8.6 X10^3/uL (2.0-7.7); Basophil# 0.03 X10^3/uL; Basophil% 0.3 % (0-1); Eosinophil# 0.07 X10^3/uL; Eosinophils% 0.6 % (0-5); Hematocrit 27.9 % (37-47); Hemoglobin 9.5 g/dL (12.0-15.0); Lymphocyte # 1.93 X10^3/ul (4.0); Lymphocyte % 16.5 % (19-41); Mean Corp Hgb Conc 34.1 g/dL (32-36); Mean Corpuscular Hgb 29.3 pg (27.0-32.0); Mean Corpuscular Volume 86.1 fL (81-99); Mean Platelet Vol. 9.5 fl (6.2-12.0); Monocyte# 1.06 X10^3/uL; Monocyte% 9.1 % (0-10); NRBC Flagged by Analyzer 0 % (0-5); Neutrophil # 8.58 X10^3/uL (2.7-7.7); Neutrophil % 73.2 % (47-70); Platelet Count 193 K/mm3 (150-450); RBC Distribution Width CV 12.6 % (11.6-14.6); RBC Distribution Width SD 39.5 fl (35.1-43.9); Red Blood Count 3.24 M/mm3 (4.2-5.4); White Blood Count 11.7 K/mm3 (4.4-11.0)
[2019-05-28 06:16] LABS: ALB/GLOB Ratio 0.5 RATIO (0.9-2.4); AST(SGOT) 14 U/L (15-37); Alanine Aminotransfer ALT/SGPT 15 U/L (13-56); Alkaline Phosphatase 92 U/L (45-117); Anion Gap 7 (5-15); BUN 8 mg/dL (7-18); BUN/Creat Ratio 16.5 RATIO (10-20); Calcium,Total 8.3 mg/dL (8.5-10.1); Chloride 103 mmol/L (98-107); Creatinine, Serum 0.48 mg/dL (0.55-1.02); EST Glomerular Filtration Rate 133 mL/min (>60); Est Glom Filt Rate - Afr Amer 160 mL/min (>60); Estimated Creatinine Clearance 40.83 ml/min; Globulin 3.7 g/dL (2.2-4.2); Glucose 261 mg/dL (74-106); Potassium 3.2 mmol/L (3.5-5.1); Protein, Total 5.7 g/dL (6.4-8.2); Sodium Level 136 mmol/L (136-145)
[2019-05-28] MEDS: Insulin Lispro 100 UNIT/ML INSULN.PEN SC ×2 (06:28→12:04)
[2019-05-28 06:55] LABS: Bedside Glucose 253 mg/dL (70-110)
[2019-05-28 08:16] VITALS: BP 124/45; PULSE 88; RESP 18; TEMP 36.9; O2SAT 97
[2019-05-28] MEDS: Senna/Docusate Sodium 1 Tablet 2 TABLET PO (08:19)
[2019-05-28] MEDS: Polyethylene Glycol 3350 17 GM PACKET PO (08:19)
[2019-05-28] MEDS: Lisinopril 5 MG Tablet PO (08:20)
[2019-05-28] MEDS: Iron Polysaccharide Complex 150 MG CAPSULE PO (08:20)
[2019-05-28] MEDS: Ceftriaxone 1 GM/50 ML BAG IV (09:43)
--- NOTE | 2019-05-28 10:06 | CASEMGMT ---
Social Work Note MARCELLUS placed a call to Noris at [facility]. Noris confirms she received referral and JUAN CARLOS is reviewing referral. Noris states she will let this worker know as soon as possible when she knows if [facility] is able to accept pt. MARCELLUS waiting for call back from [facility]. Plan: SNF today pending acceptance Edelmira Garvey SURFACE PLATE FINISHER, NURSING SURGICAL SERVICES DIRECTOR
[2019-05-28] MEDS: 0.9% Saline Lock 10 ML Syringe IV (11:36)
--- NOTE | 2019-05-28 11:55 | PCM.TXEXTCAR ---
- Diet 05/27/19 08:18 Diet: Cardiac: Carb-Controlled, 1600 calories Is pt able to select menu?: Yes - Routine Orders/Code Status Routine Lab Work: CBC - within 3 days, BMP - withi 3 days Code Status: Full Code - Wound(s) LEFT HIP Wound Type: Surgical Incision - Therapies Weight Bearing: Weight bearing as tolerated Extremity Affected:: Left Lower Physical Therapy: Eval and Treat Occupational Therapy: Eval and Treat - Problem/Diagnosis (1) Hip fracture, left Status: Acute Current Visit: Yes (2) Diabetes mellitus with hyperglycemia Status: Chronic Current Visit: Yes (3) Hypertension Status: Chronic Current Visit: No - Allergies/Procedures Done in Hospital Allergies/Adverse Reactions: Allergies shellfish derived Allergy (Severe, Verified 04/28/17 09:01) swelling in throat Penicillins [PCN] Allergy (Verified 04/28/17 09:01) Shortness of breath artificial sweeteners Adverse Reaction (Uncoded 04/14/17 13:51) headaches Procedures: - - s/p left hip hemiarthropathy on 05/26/19 - Type of Care/Length of Stay Estimated LOS: Convalescent Care Less Than 30 days Type of Care Needed: Skilled Rehab Potential: Fair Prognosis: Fair - Additional Orders/Day of Discharge Additional Orders: Patient will need a PCL brace per orthopedics. Hip precautions precautions. Dressing to be removed 72 hours postop and begin showering daily at that time with daily dressing changes. Surgery was on 05/26/19. Deneen to be removed 2 weeks Day of Discharge: 05/28/19 - Dietary and Speech Recommendations Dietitian Recommendations/Changes: Diet change to 1600 calorie/Cardiac. D/C ensure w/meals & glucerna shake on medpass as ordered--will adjust volume to support improved blood sugar. - Follow Up Care Primary Care Physician: Baljinder Vasquez III, MD [Primary Care Provider] - Please follow up with your Primary Care Physician in: within 2 weeks after discharge Please Follow Up With: Fermin Perkins DO When: in 2-4 weeks
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
[2019-05-28 12:10] LABS: Bedside Glucose 334 mg/dL (70-110)
--- NOTE | 2019-05-28 13:57 | CASEMGMT ---
Social Work Note MARCELLUS spoke with Noris at [facility] stating [facility] is able to accept pt today. MARCELLUS updated physician. MARCELLUS faxed completed discharge paperwork to [facility] including transfer to extended care facility, signed medication list and any scripts. Original in SNF folder and copy on pt's chart. MARCELLUS completed [facility] in [facility]. Original in SNF folder and copy on pt's chart. MARCELLUS placed a call to [facility] and arranged transportation via cot for 2:30pm. Transportation form completed and placed on SNF folder and copy on pt's chart. MARCELLUS placed a call to Noris at [facility] and left her a message regarding discharge and transportation time. MARCELLUS placed a call to pt's Enrike and updated him on acceptance to [facility], discharge and transportation time today. Enrike states understanding. RN updated on transportation time. Plan: [facility] skilled today with [facility] transporting via cot at 2:30pm Edelmira Garvey MSW, HEEL SEAT TRIMMER
--- NOTE | 2019-05-28 14:59 | NURSING ---
called report to Margret at [facility] at this time.
== END 2019-05-28 14:40 | disposition skilled nursing facility (03) | DRG 470 ==
LOC: ED 09:08 → MS3 10:51
PROVIDERS: Anesthesiology; Orthopaedic Surgery; Admitting Provider Internal Medicine; Emergency Provider Emergency Medicine; PCP Family Medicine; Visit Provider Internal Medicine
PROC: 0SRS0JA Replacement of Left Hip Joint, Femoral Surface with Synthetic Substitute, Uncemented, Open Approach (ICD-10-PCS; CPT 27125; principal; 2019-05-26 12:40)
DX: S72.012A Unspecified intracapsular fracture of left femur, initial encounter for closed fracture (principal); S82.002A Unspecified fracture of left patella, initial encounter for closed fracture; N39.0 Urinary tract infection, site not specified; W01.0XXA Fall on same level from slipping, tripping and stumbling without subsequent striking against object, initial encounter; S00.03XA Contusion of scalp, initial encounter; B96.89 Other specified bacterial agents as the cause of diseases classified elsewhere; I10 Essential (primary) hypertension; S83.522A Sprain of posterior cruciate ligament of left knee, initial encounter; B37.2 Candidiasis of skin and nail; E11.65 Type 2 diabetes mellitus with hyperglycemia; Z88.0 Allergy status to penicillin; Z79.4 Long term (current) use of insulin
CPT/HCPCS: 36415; 51702; 70450; 71045; 73502; 73560; 73700; 73720; 80048; 80053; 81001; 82962; 83036; 85025; 85027; 85610; 85730; 86850; 86900; 86901; 87077; 87086; 87088; 87186; 88305; 88311; 93005; 97163; 97167; 97802; 99251; 99285; A9575; C1776; J7030; A4216; G0463; J2405; J3490

== ENCOUNTER → 2019-06-18 09:59 | Outpatient (CLI) | payer MEDICARE, OTHER, SELFPAY ==
[2019-05-26 11:49] VITALS: BMI 23.8
--- NOTE | 2019-06-18 10:25 | RAD_ITS ---
STUDY: X-RAY - PELVIS AND LEFT HIP REASON FOR EXAM: Female, 73 years old. post op TECHNIQUE: 3 views of the pelvis and hip. COMPARISON: None. FINDINGS: There is a non-specific bowel gas pattern. Normal visualized soft tissue structures. There is diffuse demineralization of the osseous structures. Normal bilateral iliac wings, sacroiliac joints and visualized sacrum. Normal bilateral superior and inferior pubic rami. Normal pubic symphysis. Normal bilateral ischial tuberosities. Left hip replacement with radiographic alignment. RAD/HIP, UNI W/ Pelvis 2-3 Views IMPRESSION: Radiographic alignment of left hip replacement. Electronically Signed: Nikolay Chung MD (Brooks) at 17:00 EDT , Service support ,
--- NOTE | 2019-06-18 10:25 | RAD_ITS ---
STUDY: X-RAY - LEFT KNEE REASON FOR EXAM: Female, 73 years old. knee pain post hip surgery, no knee trauma TECHNIQUE: 4 view(s) of the knee. COMPARISON: None. FINDINGS: There is demineralization of the visualized distal femur. There is demineralization of the tibia and fibula. Normal proximal tibiofibular articulation. Narrowing of the medial femorotibial compartment. Normal lateral femorotibial compartment. There is mild degenerative arthrosis of the patellofemoral articulation. There is a soft tissue prominence in the suprapatellar region suggesting a small volume joint effusion. The soft tissue structures are unremarkable. RAD/Knee 4 or More Views IMPRESSION: 1. Mild degenerative changes. No fracture or malalignment. Trace joint effusion. Electronically Signed: Nikolay Chung MD (Brooks) at 17:02 EDT , Service support ,
== END ==
PROVIDERS: PCP Family Medicine; Referring Provider Orthopaedic Surgery; Visit Provider Orthopaedic Surgery
DX: S72.002A Fracture of unspecified part of neck of left femur, initial encounter for closed fracture (principal); M25.562 Pain in left knee
CPT/HCPCS: 73502; 73564

== ENCOUNTER 2019-09-21 17:05 | Inpatient (IN) | payer MEDICARE, OTHER, SELFPAY ==
[2019-06-18 10:21] VITALS: BMI 23.8
[2019-09-21 17:06] VITALS: BP 111/56; PULSE 79; RESP 17; TEMP 36.8; O2SAT 96; BMI 24.0
--- NOTE | 2019-09-21 17:26 | EKG12_ITS ---
Test Reason : FALL Blood Pressure : / mmHG Vent. Rate : 080 BPM Atrial Rate : 080 BPM P-R Int : 174 ms QRS Dur : 072 ms QT Int : 402 ms P-R-T Axes : 049 002 048 degrees QTc Int : 463 ms Normal sinus rhythm Inferior infarct , age undetermined Abnormal ECG Confirmed by WINSOME PALUMBO, JERMAN ([id number]), film and video editor PREETI CARLOS ([id number]) on 09/24/2019 11:07:54 AM Referred By: FLORES Confirmed By:JERMAN SCHUMACHER MD
--- NOTE | 2019-09-21 17:26 | CT_ITS ---
STUDY: CT BRAIN WITHOUT CONTRAST REASON FOR EXAM: Female, 74 years old. FALL X 2 YESTERDAY/CONFUSION RADIATION DOSAGE (If Supplied By Facility): CTDIvol = ( 44.99 ) mGy, DLP = ( 745.49 ) mGycm TECHNIQUE: Transaxial CT imaging of the brain was performed without administration of intravenous contrast material. Individualized dose optimization techniques were used for this CT. COMPARISON: No relevant priors. FINDINGS: Normal soft tissue structures. Normal calvarium. Calcification of cavernous carotids. Moderate atrophy and advanced periventricular white matter ischemic changes.. Old deep white matter in the right frontal lobe Probable old lacunar infarct in the right basal ganglia.. Normal brainstem. Normal cerebellum. There is no intracranial hemorrhage. There are no findings of an acute ischemic infarction. Postop changes of the orbits. Normal visualized paranasal sinuses. CT/Brain/Head without Contrast IMPRESSION: Moderate atrophy and advanced periventricular white matter ischemic changes. 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 No evidence for acute intracranial bleed Electronically Signed: Gabe Wall MD at 18:07 EDT , Service support ,
[2019-09-21 17:31] LABS: Bedside Glucose 488 mg/dL (70-110)
[2019-09-21] MEDS: 0.9% Normal Saline 1,000 ML 1000 ML IV (17:43)
[2019-09-21] MEDS: Morphine 2 MG/ML Syringe IV (17:48)
[2019-09-21] MEDS: Ondansetron 4 MG/2 ML Vial IV (17:48)
--- NOTE | 2019-09-21 18:02 | CM.ED ---
Social Work Consult: alf placement Informant: Dr. Devine Met with patient and patient spouse, Enrike Joiner in room. Introduced self as well as manager social media role. Patient agreeable to speaking with this manager social media. Patient lives at home with spouse. Patient used a rolaider to ambulate. Patient spouse provides 24hr care for patient in the home. Enrike stating to have no support from adult children due to one living out of state and the other working. Enrike states I can't take care of her anymore. Patient states to have been living at home for the past three weeks and prior to that was at the [facility] since 2019 due to a fall resulting in hip fracture. Patient states to have fallen 4-5 times within the past few weeks at home with Enrike at home with patient. Patient presenting with a depressed affect. Enrike appears to be overwhelmed and is tearful when speaking about not being able to care for patient in the home. Patient and Enrike requesting for patient to transition back to a correction setting. Patient states to not want to return to the [facility] but maybe another correction. Patient noted to have Medicare and Enrike believes that patient used somewhere around 80 days under Medicare. Enrike aware that patient Medicare care days have not reset yet. Enrike states to have Medicaid for patient that is good until October 2019 and then Enrike plans to renew. Active listening and support provided. This manager social media providing Enrike with list of nursing homes to be able to begin going over to decide which correction for patient to transition to. Enrike and patient aware that this manager social media is unable to have patient placed in a correction from the ED due to end of business day for correction admissions departments. Advanced care planning: Patient does not have a Health Care Power of Act English Tutor and is interested in completing documents. Patient with a blood sugar of 480 and is not currently feeling able to complete HCPOA documents. Patient educated that social work can assist with this. Patient states to nominate Enrike as health care power of contracts attorney for patient. Collaborating with Dr. Devine, plan is for admission to facilitate correction placement and manage any other medical concerns that may come back with work-up in ED. Sera Green MSW, [place]
[2019-09-21 18:25] LABS: Absolute Lymphocyte Count 1.65 X10^3/uL (0.83-4.51); Absolute Neutrophil Count 6.4 X10^3/uL (2.0-7.7); Basophil# 0.03 X10^3/uL; Basophil% 0.3 % (0-1); Eosinophil# 0.02 X10^3/uL; Eosinophils% 0.2 % (0-5); Hematocrit 34.7 % (37-47); Hemoglobin 11.7 g/dL (12.0-15.0); Lymphocyte # 1.65 X10^3/ul (4.0); Lymphocyte % 18.9 % (19-41); Mean Corp Hgb Conc 33.7 g/dL (32-36); Mean Corpuscular Hgb 29.2 pg (27.0-32.0); Mean Corpuscular Volume 86.5 fL (81-99); Mean Platelet Vol. 10.7 fl (6.2-12.0); Monocyte# 0.62 X10^3/uL; Monocyte% 7.1 % (0-10); NRBC Flagged by Analyzer 0 % (0-5); Neutrophil # 6.37 X10^3/uL (2.7-7.7); Neutrophil % 73.3 % (47-70); Platelet Count 225 K/mm3 (150-450); RBC Distribution Width SD 38.5 fl (35.1-43.9); Red Blood Count 4.01 M/mm3 (4.2-5.4); White Blood Count 8.7 K/mm3 (4.4-11.0)
[2019-09-21 18:40] LABS: Phosphorus 3.4 mg/dL (2.5-4.9)
[2019-09-21 18:44] LABS: Bacteria 0 SEEN /hpf (None Seen); Mucous, Urine 0 SEEN /hpf (<or=2+); Red Blood Cells-Urine 0 SEEN /hpf (0-5); Squamous Epithelial Cells - UA 0 SEEN /hpf (5-10); White Blood Cells 0 SEEN /hpf (0-5)
[2019-09-21 18:47] LABS: Color, Urine Yellow (Yellow); Glucose, Dipstick 1000 mg/dl (Normal); Ketone-Dipstick Negative (Negative); Leukocyte Esterase-Dipstick Negative /ul (Negative); Nitrite-Dipstick Negative (Negative); Occult Blood-Urine 50 /ul (Negative); Protein-Dipstick 100 mg/dl (Negative); Urine Bilirubin Dipstick Negative (Negative); Urine Clarity Sl. Cloudy (Clear); Urine Urobilinogen Normal (Normal)
[2019-09-21 18:51] LABS: ALB/GLOB Ratio 0.7 RATIO (0.9-2.4); AST(SGOT) 11 U/L (15-37); Alanine Aminotransfer ALT/SGPT 14 U/L (13-56); Albumin, Serum 2.9 g/dL (3.2-5.0); Alkaline Phosphatase 79 U/L (45-117); Anion Gap 12 (5-15); BUN 23 mg/dL (7-18); Calcium,Total 9.1 mg/dL (8.5-10.1); Chloride 96 mmol/L (98-107); Creatinine, Serum 1.35 mg/dL (0.55-1.02); EST Glomerular Filtration Rate 41 mL/min (>60); Est Glom Filt Rate - Afr Amer 49 mL/min (>60); Estimated Creatinine Clearance 29.78 ml/min; Globulin 4.3 g/dL (2.2-4.2); Glucose 524 mg/dL (74-106); Magnesium 1.9 mg/dL (1.6-2.6); Potassium 3.9 mmol/L (3.5-5.1); Protein, Total 7.2 g/dL (6.4-8.2); Sodium Level 135 mmol/L (136-145)
[2019-09-21 19:10] VITALS: PULSE 88; RESP 14; O2SAT 92
--- NOTE | 2019-09-21 19:28 | HP.PCM_ITS ---
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 Reportedly her blood glucose machine at home read high. Her gave her 15 units of insulin. The type of insulin is not known at this time. 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 On 18 September 2020 (her birthday) she fell 2 times. She sustained pain at her tailbone. She fell backwards. Imaging done by her PCP was unremarkable. Reportedly patient was confused at home. [facility] Past Medical History Past Medical History (Chronic Problems): Chronic Problems (Last Reviewed 09/21/19 @ 21:[address] Fermin Erickson MD) Diabetes mellitus with hyperglycemia (Chronic) Diabetes mellitus (Chronic) Type 2 diabetes mellitus (Chronic) Hypertension (Chronic) Medical History: Medical History (Last Reviewed 09/21/19 @ 21:[address] Fermin Erickson MD) Abdominal abscess K65.1 Arthritis M19.90 Back problem M53.9 Diabetes E11.9 Allergies shellfish derived Allergy (Severe, Verified 09/21/19 17:09) swelling in throat Penicillins [PCN] Allergy (Verified 09/21/19 17:09) Shortness of breath artificial sweeteners Adverse Reaction (Uncoded 09/21/19 17:09) headaches Home Medications: Ambulatory Orders Medication Instructions Recorded Lisinopril [Zestril] 5 mg PO DAILY 02/24/17 Insulin Detemir [Levemir FlexPen] 35 units SC BID #3 insuln.pen 03/18/17 Insulin Lispro [Humalog KwikPen] See Protocol SUBCUT ACHS 05/28/19 insuln.pen Acetaminophen [Tylenol] 500 mg PO TID PRN PRN 09/21/19 Nabumetone 500 mg PO BID 09/21/19 Surgical History: Surgical History (Last Reviewed 09/21/19 @ 21:[address] Fermin Erickson MD) History of abscess of skin and subcutaneous tissue Z87.2 groin Surgical History: hysterectomy, - - Back surgery, . 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 Fermin Erickson MD) Father Arthritis Mother Diabetes Sister Diabetes History Items: Diabetes Paternal Family History: Family History (Last Reviewed 09/21/19 @ 21:[address] Fermin Erickson MD) Father Arthritis Mother Diabetes Sister Diabetes History Items: - - Arthritis Review of Systems Constitutional: Reports: Fatigue. Denies: Chills, Fever, Weight Change HEENT: Denies: Head Aches, Sinus Congestion, Sinus Drainage Cardiovascular: Denies: Chest Pain, Palpitations Respiratory: Denies: Cough, Shortness of breath at rest, Sputum production Gastrointestinal: Denies: Abdominal Pain, Nausea, Vomiting Genitourinary: Denies: Dysuria Musculoskeletal: Denies: Joint Pain, Joint Tenderness Skin: Denies: Rash, Wounds Neurological: Denies: Numbness, Tingling, Focal weakness Psychiatric: Denies: Anxiety, Depression, Homicidal Ideations, Suicidal Ideations Hematologic/ Lymphatic: Denies: Easy Bruising, Easy Bleeding VTE Information - Inpt Only VTE Present on Admission: No VTE Mechan Device Prophylaxis: None VTE Pharm Prophylaxis ordered?: Yes Patient Problems: Active and Suspected Problems (Last Reviewed 09/21/19 @ 21:[address] Fermin Erickson MD) Failure to thrive (Acute) Multiple falls (Acute) Hyperglycemia (Acute) - Physical Exam Vitals/I&O's: Vital Signs Temp Pulse Resp BP Pulse Ox 98.3 F 88 14 111/56 L 92 09/21/19 17:06 09/21/19 19:10 09/21/19 19:10 09/21/19 17:06 09/21/19 19:10 Oxygen Delivery Method Room Air Weight: 61.7 kg Body Mass Index (BMI) 24.0 Finger Stick Blood Glucose 488 General: Alert, Oriented x3, Cooperative HEENT: Atraumatic, PERRLA, EOMI, Normocephalic Neck: Supple, No JVD, Negative Carotid Bruits Lungs: Clear to auscultation, Normal air movement Cardiovascular: Regular rate, Normal S1, Normal S2, No murmurs Abdomen: Bowel Sounds Present, Soft, Non Tender Extremities: No edema, Capillary Refill Less than 3 Seconds Skin: - - Redness of coccyx. Musculoskeletal: No Tenderness to Palpation of Joints or Extremities Neurological: Cranial nerves II-XII grossly intact Psych/Mental Status: Normal Affect, Appropriate Laboratory Results 09/21/19 17:15: POC Glucose 488 H* 09/21/19 17:20: WBC 8.7, RBC 4.01 L, Hgb 11.7 L, Hct 34.7 L, MCV 86.5, MCH 29.2, MCHC 33.7, RDW Std Deviation 38.5, RDW Coeff of Feng 12.0, Plt Count 225, MPV 10.7, Immature Gran % (Auto) 0.200, Neut % (Auto) 73.3 H, Lymph % (Auto) 18.9 L, [place] % (Auto) 7.1, Eos % (Auto) 0.2, Baso % (Auto) 0.3, Absolute Neuts (auto) 6.4, Absolute Lymphs (auto) 1.65, Nucleated RBC % 0 09/21/19 17:20: Sodium 135 L, Potassium 3.9, Chloride 96 L, Carbon Dioxide 27.0, Anion Gap 12, BUN 23 H, Creatinine 1.35 H, Estim Creat Clear Calc 29.78, Est GFR (MDRD) Af Amer 49 L, Est GFR (MDRD) Non-Af 41 L, BUN/Creatinine Ratio 17.0, Glucose 524 H*, Calcium 9.1, Magnesium 1.9, Total Bilirubin 0.50, AST 11 L, ALT 14, Alkaline Phosphatase 79, Troponin I < 0.015, Total Protein 7.2, Albumin 2.9 L, Globulin 4.3 H, Albumin/Globulin Ratio 0.7 L 09/21/19 17:20: Phosphorus 3.4 09/21/19 17:20: Hemoglobin A1c 9.0 H 09/21/19 17:20: Acetone Level NEGATIVE 09/21/19 18:30: Urine Color Yellow, Urine Clarity Sl. Cloudy, Urine pH 5.0, Ur Specific [place] 1.010, Urine Protein 100 H, Urine Glucose (UA) 1000 H, Urine Ketones Negative, Urine Occult Blood 50 H, Urine Nitrite Negative, Urine Bilirubin Negative, Urine Urobilinogen Normal, Ur Leukocyte Esterase Negative, Urine RBC 0 SEEN, Urine WBC 0 SEEN, Ur Squamous Epith Cells 0 SEEN, Urine Bacteria 0 SEEN, Urine Mucus 0 SEEN Assessment/Plan All Active Problems (Last Reviewed 09/21/19 @ 21:[address] Fermin Erickson MD) Failure to thrive (Acute) Multiple falls (Acute) Hyperglycemia (Acute) The patient is a 74 year old F with a significant history of diabetes mellitus who presents emergency department with elevated blood glucose; multiple falls; and difficulty to take care of herself at home. Diabetes mellitus with nephropathy Noted proteinuria; glycosuria and urine occult blood. On presentation her blood glucose was 524 on BMP. Blood glucose on accu-chek machine was 488; and then to 292. A1c was 9.0. Continue home basal insulin. Accu-Chek QA CHS with correction scale insulin ordered. Adult failure to thrive. Patient has been unable to take care of herself at home. She has had multiple episodes of a fall. Case management was consulted from the emergency department. PT and OT ordered. Likely patient will need [facility] placement. TSH ordered. KAREN Creatinine presentation was 1.35. Review of old records shows a creatinine of less than 1. Gentle IV hydration. Trend BMP. Avoid nephrotoxic's. Multiple falls PT noted to work with patient frustrated and balance training. Vitamin B12; vitamin D ordered. Stage I pressure ulcer. Patient with some redness at the coccyx. Calmoseptine ordered. Microscopic hematuria Review of emergency department labs showed a positive urine occult blood. No RBCs seen in the urine. Check CPK. Could be due to diabetic nephropathy DVT prophylaxis Subcutaneous Lovenox. OBSV E&M: 29139 Initial observation care L3
[2019-09-21 20:45] VITALS: BMI 23.0
[2019-09-21 20:46] LABS: Bedside Glucose 292 mg/dL (70-110)
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
[2019-09-21 21:16] VITALS: BMI 23.0
[2019-09-21 21:22] VITALS: BP 139/56; PULSE 79; RESP 16; TEMP 36.7; O2SAT 93
[2019-09-21 21:51] VITALS: PULSE 78
[2019-09-21 23:00] LABS: Bedside Glucose 304 mg/dL (70-110)
[2019-09-21] MEDS: Menthol/Lanolin/Calamine/Znox 113 GM Tube 1 APPLIC TOPICAL (23:03)
[2019-09-21] MEDS: 0.9% Normal Saline 1,000 ML 75 ML IV (23:03)
[2019-09-21] MEDS: Insulin Lispro 100 UNIT/ML INSULN.PEN SC (23:05)
[2019-09-21] MEDS: 0.9% Saline Lock 10 ML Syringe IV (23:07)
[2019-09-22 03:02] VITALS: BP 138/50; PULSE 77; RESP 16; TEMP 36.9; O2SAT 95
[2019-09-22] MEDS: Acetaminophen 325 MG Tablet 650 MG PO (03:15)
[2019-09-22 03:26] LABS: Bedside Glucose 111 mg/dL (70-110)
[2019-09-22] MEDS: Nystatin Powder 15gm Bottle 1 APPLIC TOPICAL ×2 (06:30→20:58)
--- NOTE | 2019-09-22 06:54 | NURSING ---
One touch is 70. Pt given cranberry juice & thong crackers. Breakfast ordered.
[2019-09-22 06:55] LABS: Absolute Lymphocyte Count 2.33 X10^3/uL (0.83-4.51); Absolute Neutrophil Count 3.9 X10^3/uL (2.0-7.7); Basophil# 0.02 X10^3/uL; Basophil% 0.3 % (0-1); Eosinophils% 1.5 % (0-5); Hematocrit 33.3 % (37-47); Lymphocyte # 2.33 X10^3/ul (4.0); Lymphocyte % 33.8 % (19-41); Mean Corpuscular Hgb 28.9 pg (27.0-32.0); Mean Corpuscular Volume 87.4 fL (81-99); Mean Platelet Vol. 9.9 fl (6.2-12.0); Monocyte# 0.57 X10^3/uL; Monocyte% 8.3 % (0-10); NRBC Flagged by Analyzer 0 % (0-5); Neutrophil # 3.85 X10^3/uL (2.7-7.7); Neutrophil % 55.8 % (47-70); Platelet Count 196 K/mm3 (150-450); RBC Distribution Width CV 12.1 % (11.6-14.6); RBC Distribution Width SD 38.9 fl (35.1-43.9); Red Blood Count 3.81 M/mm3 (4.2-5.4); White Blood Count 6.9 K/mm3 (4.4-11.0)
[2019-09-22 07:00] LABS: Bedside Glucose 70 mg/dL (70-110)
[2019-09-22 07:30] VITALS: BP 132/67; PULSE 78; RESP 16; TEMP 36.4; O2SAT 96
[2019-09-22 07:31] LABS: Anion Gap 6 (5-15); BUN 17 mg/dL (7-18); BUN/Creat Ratio 22.6 RATIO (10-20); Calcium,Total 8.6 mg/dL (8.5-10.1); Chloride 106 mmol/L (98-107); Creatinine, Serum 0.75 mg/dL (0.55-1.02); EST Glomerular Filtration Rate 80 mL/min (>60); Est Glom Filt Rate - Afr Amer 97 mL/min (>60); Estimated Creatinine Clearance 40.21 ml/min; Glucose 74 mg/dL (74-106); Potassium 3.5 mmol/L (3.5-5.1); Sodium Level 142 mmol/L (136-145); Thyroid Stim Hormone (TSH) 1.55 uIU/mL (0.358-3.74)
--- NOTE | 2019-09-22 07:39 | PN_ITS ---
Patient Problems: Active and Suspected Problems (Last Reviewed 09/21/19 @ 21:[address] Fermin Erickson MD) Failure to thrive (Acute) Multiple falls (Acute) Hyperglycemia (Acute) Reason for Visit: Failure to thrive, loss of weight, recurrent fall Objective: Patient states that she lost about 60 pounds in 1 year. She also has chronic diarrhea for about 1 year, loose to semisolid in consistency about 3 times per day for about 1 year. Complain of loss of appetite. Had colonoscopy about 10 years ago and small polyp was removed but not concerning as per the patient. Patient stated her legs are weak and gives up. She fell twice on on her birthday about 4 days ago and hit head at one time but does not remember the details. Imaging done by PCP was unremarkable. She was also confused at home and was in correction recently. She had vertigo, loss of balance and equilibrium. Vitals/I&O's: Vital Signs Temp Pulse Resp BP Pulse Ox 97.5 F L 78 16 132/67 H 96 09/22/19 07:30 09/22/19 07:30 09/22/19 07:30 09/22/19 07:30 09/22/19 07:30 Oxygen Delivery Method Room Air Weight: 132 lb 0.91 oz Body Mass Index (BMI) 23.0 Finger Stick Blood Glucose 488 Intake and Output for Last 24 Hours 09/20/19 09/21/19 09/22/19 23:59 23:59 23:59 Intake Total 1000 / 1000 50 / 50 Output Total 450 / 450 Balance 1000 / 750 -400 / -400 General: Alert, Oriented x3, Cooperative HEENT: Atraumatic, PERRLA, EOMI, Normocephalic Oral: Moist Mucosa, No Gingival or Mucosal Lesions/ Ulcerations Neck: Supple, No JVD, Negative Carotid Bruits Lungs: Clear to auscultation, Normal air movement, No rhonchi, No wheeze, No rales, Diminished - Air entry diminished in bilateral lung bases Cardiovascular: Regular rate, Regular Rhythm, Normal S1, Normal S2, No murmurs Abdomen: Bowel Sounds Present, Soft, Non Tender, Non-Distended, - - Per rectal exam: Soft yellow fecal matter found. No palpable mass within reach of finger. Extremities: Capillary Refill Less than 3 Seconds, Edema - Bilateral lower leg edema Skin: No rashes, No breakdown Musculoskeletal: No Tenderness to Palpation of Joints or Extremities, Arthritic Changes Neurological: Cranial nerves II-XII grossly intact, Deep Tendon Reflexes 2+/4 and Symmetrical, Neuro grossly intact, - - Bilateral lower legs weakness, strength 4/5, left more than right. Denies history of a stroke. Psych/Mental Status: Appropriate, Flat Affect Laboratory Results 09/21/19 17:15: POC Glucose 488 H* 09/21/19 17:20: WBC 8.7, RBC 4.01 L, Hgb 11.7 L, Hct 34.7 L, MCV 86.5, MCH 29.2, MCHC 33.7, RDW Std Deviation 38.5, RDW Coeff of Feng 12.0, Plt Count 225, MPV 10.7, Immature Gran % (Auto) 0.200, Neut % (Auto) 73.3 H, Lymph % (Auto) 18.9 L, [place] % (Auto) 7.1, Eos % (Auto) 0.2, Baso % (Auto) 0.3, Absolute Neuts (auto) 6.4, Absolute Lymphs (auto) 1.65, Nucleated RBC % 0 09/21/19 17:20: Sodium 135 L, Potassium 3.9, Chloride 96 L, Carbon Dioxide 27.0, Anion Gap 12, BUN 23 H, Creatinine 1.35 H, Estim Creat Clear Calc 29.78, Est GFR (MDRD) Af Amer 49 L, Est GFR (MDRD) Non-Af 41 L, BUN/Creatinine Ratio 17.0, Glucose 524 H*, Calcium 9.1, Magnesium 1.9, Total Bilirubin 0.50, AST 11 L, ALT 14, Alkaline Phosphatase 79, Troponin I < 0.015, Total Protein 7.2, Albumin 2.9 L, Globulin 4.3 H, Albumin/Globulin Ratio 0.7 L 09/21/19 17:20: Phosphorus 3.4 09/21/19 17:20: Hemoglobin A1c 9.0 H 09/21/19 17:20: Acetone Level NEGATIVE 09/21/19 18:30: Urine Color Yellow, Urine Clarity Sl. Cloudy, Urine pH 5.0, Ur Specific [place] 1.010, Urine Protein 100 H, Urine Glucose (UA) 1000 H, Urine Ketones Negative, Urine Occult Blood 50 H, Urine Nitrite Negative, Urine Bilirubin Negative, Urine Urobilinogen Normal, Ur Leukocyte Esterase Negative, Urine RBC 0 SEEN, Urine WBC 0 SEEN, Ur Squamous Epith Cells 0 SEEN, Urine Bacteria 0 SEEN, Urine Mucus 0 SEEN 09/21/19 20:40: POC Glucose 292 H 09/21/19 22:54: POC Glucose 304 H 09/22/19 03:00: POC Glucose 111 H 09/22/19 06:39: Sodium 142, Potassium 3.5, Chloride 106, Carbon Dioxide 30.0, A nion Gap 6, BUN 17, Creatinine 0.75, Estim Creat Clear Calc 40.21, Est GFR (MDRD) Af Amer 97, Est GFR (MDRD) Non-Af 80, BUN/Creatinine Ratio 22.6 H, Glucose 74, Calcium 8.6, TSH 1.55 09/22/19 06:39: WBC 6.9, RBC 3.81 L, Hgb 11.0 L, Hct 33.3 L, MCV 87.4, MCH 28.9, MCHC 33.0, RDW Std Deviation 38.9, RDW Coeff of Feng 12.1, Plt Count 196, MPV 9.9, Immature Gran % (Auto) 0.300, Neut % (Auto) 55.8, Lymph % (Auto) 33.8, [place] % (Auto) 8.3, Eos % (Auto) 1.5, Baso % (Auto) 0.3, Absolute Neuts (auto) 3.9, Absolute Lymphs (auto) 2.33, Nucleated RBC % 0 09/22/19 06:39: Vitamin B12 Pending, Vitamin D 25-Hydroxy Pending 09/22/19 06:39: CK Isoenzymes Pending, CK-MM (CK-3) Pending, CK-MB (CK-2) Pending, CK-BB (CK-1) Pending 09/22/19 06:44: POC Glucose 70 Current Medications Acetaminophen (Tylenol) 650 mg PO Q6H PRN PRN PRN Reason: Pain Score 1-10/Temp > 100.7 F Last Admin: 09/22/19 03:15 Dose: 650 mg Documented by: Bisacodyl (Dulcolax) 5 mg PO DAILY PRN PRN PRN Reason: Constipation Calamine/Phenol (Calmoseptine Ointment) 1 applic TOPICAL BID DIANNE; Protocol Last Admin: 09/21/19 23:03 Dose: 1 applicatio Documented by: Dextrose (D50w Syringe) 0 gm IV X1 PRN; Protocol PRN Reason: Hypoglycemia Enoxaparin Sodium (Lovenox) 30 mg SC DAILY [facility] Etodolac (Lodine) 200 mg PO BIDCM [facility] Glucagon () 1 mg IM .X1 PRN PRN Reason: Hypoglycemia Sodium Chloride () 1,000 mls @ 75 mls/hr IV .[id number] [facility] Last Admin: 09/21/19 23:03 Dose: 75 mls/hr Documented by: Insulin Human Lispro (Humalog Kwikpen (Bkc)) 0 unit SC ACHS & 3AM DIANNE; Protocol Last Admin: 09/22/19 06:46 Dose: Not Given Documented by: Lisinopril (Zestril) 5 mg PO DAILY [facility] Melatonin (Melatonin) 3 mg PO QHS PRN PRN PRN Reason: INSOMNIA Nutritional Formula (Lactose Free) (Glucerna Shake) 120 ml PO 4X/DAY [facility] Nystatin (Mycostatin Powder) 1 applic TOPICAL BID DIANNE; Protocol Last Admin: 09/22/19 06:30 Dose: 1 applicatio Documented by: Ondansetron HCl (Zofran) 4 mg IV Q8H PRN PRN PRN Reason: NAUSEA/VOMITING Potassium Chloride (K-Dur) 40 meq PO DAILYCM [facility] Sodium Chloride () 10 - 40 ml IV UD PRN PRN Reason: SALINE FLUSH Last Admin: 09/21/19 23:07 Dose: 10 ml Documented by: STROKE Vital Signs/Narrative: Vital Signs Temp Pulse Resp BP Pulse Ox 09/22/19 07:30 97.5 F L 78 16 132/67 H 96 Medical Necessity - Tobacco Use Smoking Status: Never smoker Assessment/Plan All Active Problems (Last Reviewed 09/21/19 @ 21:[address] Fermin Erickson MD) Failure to thrive (Acute) Multiple falls (Acute) Hyperglycemia (Acute) The patient is a 74 year old F with a significant history of diabetes mellitus who was admitted for elevated blood sugar 524, A1c 9.0 along with multiple fall, inability to take care of herself. She also has loss of weight about 60 pounds and chronic diarrhea for about 1 year. 1. 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 Glucose has improved and latest 70 mg/dL. She does not remember exactly the dose of Lantus at home but currently is discontinued due to hypoglycemia. Continue Accu-Chek before meals and at bedtime cover with sliding scale lispro insulin 2. 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 PT and OT. TSH normal. Vitamin D low, 20 and B12 422. Vitamin D and B12 replacement was ordered. 3. Acute kidney injury most probably prerenal secondary to diarrhea: Last creatinine was 0.57 in July 2019 and admitted with creatinine 1.35. Creatinine improved 0.75. KAREN resolved. 4. Multiple recurrent falls probably secondary to generalized weakness, lower leg edema due to hypoalbuminemia: Albumin is 2.9. Rest as mentioned above 5. Stage I pressure ulcer at coccyx: No skin breakdown but non-blanchable skin redness. Calmoseptine ordered. Poison change every 2 hours. Patient with some redness at the coccyx. Calmoseptine ordered. 6. Occult blood in UA: UA is negative for RBC and WBC. LE and nitrite negative. CPK ordered. DVT prophylaxis: Lovenox 40 mg subcu daily Total time of the visit including total time spent in counseling or coordination of care, (more than 50% of the total time, spent in obtaining medical information from nurses and other ancillary care providers), , review of labs and imaging is 30 minutes Inpatient E&M: [id number] [facility] L2
[2019-09-22] MEDS: Etodolac 200 MG Capsule PO (07:50)
[2019-09-22 08:38] LABS: Vitamin B12 422 pg/mL (211-911); Vitamin D,25 Hydroxy 20.3 ng/mL
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
[2019-09-22] MEDS: Menthol/Lanolin/Calamine/Znox 113 GM Tube 1 APPLIC TOPICAL ×2 (09:48→20:58)
[2019-09-22] MEDS: Cyanocobalamin 500 MCG Tablet 1000 MCG PO (09:48)
[2019-09-22] MEDS: Lisinopril 5 MG Tablet PO (09:49)
[2019-09-22] MEDS: Enoxaparin 40 MG/0.4 ML Syringe SC (09:57)
[2019-09-22] MEDS: Glucerna Shake 120 ML LIQUID PO (09:58)
[2019-09-22 10:33] LABS: CPK Total, Creatine Kinase 33 U/L (26-192)
[2019-09-22] MEDS: Insulin Lispro 100 UNIT/ML INSULN.PEN SC ×3 (10:55→21:05)
[2019-09-22] MEDS: 0.9% Normal Saline 1,000 ML 75 ML IV (10:57)
[2019-09-22 11:10] LABS: Bedside Glucose 151 mg/dL (70-110)
--- NOTE | 2019-09-22 11:15 | PCM.NTREPORT ---
Nutrition Therapy Report - History Nutrition Services has been consulted to:: Manage nutrient details of diet order, Conduct nutrition education Current diet / nutrition support order:: 1800 calorie controlled. - Anthropometric Measurements Height:: 5 ft 3.5 in Weight:: 59.9 kg Body Mass Index (BMI):: 23.0 - Relevant Labs Relevant Labs:: RBC 3.81 M/mm3 (4.2-5.4) L 09/22/19 06:39 Hgb 11.0 g/dL (12.0-15.0) L 09/22/19 06:39 Hct 33.3 % (37-47) L 09/22/19 06:39 Neut % (Auto) 73.3 % (47-70) H 09/21/19 17:20 Lymph % (Auto) 18.9 % (19-41) L 09/21/19 17:20 Sodium 135 mmol/L (136-145) L 09/21/19 17:20 Chloride 96 mmol/L (98-107) L 09/21/19 17:20 BUN 23 mg/dL (7-18) H 09/21/19 17:20 Creatinine 1.35 mg/dL (0.55-1.02) H 09/21/19 17:20 Est GFR (MDRD) Af Amer 49 mL/min (>60) L 09/21/19 17:20 Est GFR (MDRD) Non-Af 41 mL/min (>60) L 09/21/19 17:20 BUN/Creatinine Ratio 22.6 RATIO (10-20) H 09/22/19 06:39 Glucose 524 mg/dL (74-106) H* 09/21/19 17:20 Hemoglobin A1c 9.0 % (3.8-5.6) H 09/21/19 17:20 AST 11 U/L (15-37) L 09/21/19 17:20 Albumin 2.9 g/dL (3.2-5.0) L 09/21/19 17:20 Globulin 4.3 g/dL (2.2-4.2) H 09/21/19 17:20 Albumin/Globulin Ratio 0.7 RATIO (0.9-2.4) L 09/21/19 17:20 - Assessment Food / Nutrition-Related History:: 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 States her baseline is usually fair. States apppetite is fair now w/ fair PO intake this AM. Does not consume artificial sweeteners, otherwise no special diet at home. SMBG sometimes w/ readings high when she checks. A1C indicates poor glycemic control. Pt states she thinks wt was ~200# 1 year ago. CBW 132.1#- 67.9#/ 33.95% wt loss x 1 year, significant for malnutrition. Pt reports chronic diarrhea x1 year; says it will occur weekly for 2-3 days at a time. Drinks 1 bottle of Equate protein drink/day at home. - Nutrition Diagnosis Problem / Etiology / Signs & Symptoms (PES):: Severe, chronic malnutrition related to decreased appetite, hyperglycemia as evidenced by 33.95% wt loss x 1 year (~67.9#) and estimated PO intake <75% estimated nutritional needs >3 months. Evidence of Malnutrition Exists:: Yes Severe PCM:: Chronic Illness - Nutrition Intervention Nutrition Prescription:: [id number] calories/day, 60-70 g protein/day - Food / Nutrient Delivery Interventions Summary of nutrition intervention:: Pt states she understands foods that cause hyperglycemia. Reports she doesn't eat much of them. Blood glucose still elevated despite limited PO intake per pt. Discussed diet as ordered- will switch to regular d/t malnutrition and because pt does not tolerate artificial sweetener. Will limit number of CHO/meal on regular diet. Will switch ONS from Glucerna to Ensure d/t artificial sweetener intolerance. Nutrition support ordered as / adjusted to:: regular d/t malnutrition, allergy to artificial sweeteners. Will limit pt to no more than 5 servings of CHO/meal to prevent hyperglycemia d/t excessive CHO intake. Will switch ONS from Glucerna to Ensure Enlive d/t allergy to artificial sweeteners. Nutrition education provided?: Yes - See above, plans for SNF placement. - MNT Monitoring Further MNT monitoring and evaluation required?: Yes MNT Follow-up in:: 3-5 days
[2019-09-22 11:24] VITALS: BMI 23.0
--- NOTE | 2019-09-22 11:24 | NS ---
Will change diet to regular d/t malnutrition, allergy to artificial sweeteners. Will limit pt to no more than 5 servings of CHO/meal to prevent hyperglycemia d/t excessive CHO intake. Will switch ONS from Glucerna to Ensure Enlive d/t allergy to artificial sweeteners. Please call clinical RDN at [phone] w/ questions. Maria Ines Steward MS, RDN, LD
--- NOTE | 2019-09-22 13:50 | CASEMGMT ---
Social Work Note PT/OT evaluations are available. MARCELLUS faxed referral to Jessica at [facility]. SW placed a call to Jessica at [facility] and left message regarding referral. Pt's COVID test is pending, W will need COVID test before being able to admit pt. Plan: [facility] pending acceptance Edelmira Garvey TOOLROOM CLERK, DEBURRING AND TOOLING MACHINE OPERATOR
[2019-09-22 13:51] VITALS: BP 158/63; PULSE 81; RESP 16; TEMP 36.7; O2SAT 99
[2019-09-22 16:25] LABS: Bedside Glucose 289 mg/dL (70-110)
[2019-09-22 20:45] VITALS: BP 161/67; PULSE 90; RESP 16; TEMP 36.6; O2SAT 95
[2019-09-22 22:16] LABS: Bedside Glucose 267 mg/dL (70-110)
[2019-09-23] MEDS: 0.9% Normal Saline 1,000 ML 75 ML IV ×2 (01:11→13:28)
[2019-09-23] MEDS: Insulin Lispro 100 UNIT/ML INSULN.PEN SC ×4 (01:44→23:31)
[2019-09-23 02:45] VITALS: BP 168/64; PULSE 87; RESP 16; TEMP 36.9; O2SAT 95
[2019-09-23 04:47] LABS: Bedside Glucose 281 mg/dL (70-110)
[2019-09-23 06:50] LABS: Bedside Glucose 245 mg/dL (70-110)
[2019-09-23 07:40] VITALS: O2SAT 95
[2019-09-23 08:15] VITALS: BP 189/79; PULSE 88; RESP 16; TEMP 36.8; O2SAT 96
[2019-09-23] MEDS: Menthol/Lanolin/Calamine/Znox 113 GM Tube 1 APPLIC TOPICAL ×2 (08:17→23:16)
[2019-09-23] MEDS: Enoxaparin 40 MG/0.4 ML Syringe SC (08:17)
[2019-09-23] MEDS: Cyanocobalamin 500 MCG Tablet 1000 MCG PO (08:17)
[2019-09-23] MEDS: Lisinopril 5 MG Tablet PO (08:17)
[2019-09-23] MEDS: Nystatin Powder 15gm Bottle 1 APPLIC TOPICAL ×2 (08:18→23:15)
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
[2019-09-23] MEDS: Senna/Docusate Sodium 1 Tablet 2 TABLET PO ×2 (09:50→23:20)
[2019-09-23] MEDS: Polyethylene Glycol 3350 17 GM PACKET PO (09:50)
[2019-09-23] MEDS: Glucerna Shake 120 ML LIQUID PO ×3 (09:50→17:45)
[2019-09-23] MEDS: Acetaminophen 325 MG Tablet 650 MG PO (09:50)
--- NOTE | 2019-09-23 11:58 | PN_ITS ---
Patient Problems: Active and Suspected Problems (Last Reviewed 09/21/19 @ 21:[address] Fermin Erickson MD) Failure to thrive (Acute) Multiple falls (Acute) Hyperglycemia (Acute) Reason for Visit: Follow-up for failure to thrive, loss of weight and recurrent fall. Objective: Patient being seen by PT and OT. Patient is eating well. Her history of diarrhea is not reliable and today she should be seen in home bowel for 1 week. No abdominal pain I think she might have mild cognitive deficit/early dementia. On physical exam General: Alert, Oriented x3, Cooperative HEENT: Atraumatic, PERRLA, EOMI, Normocephalic Oral: Moist Mucosa, No Gingival or Mucosal Lesions/ Ulcerations Neck: Supple, No JVD, Negative Carotid Bruits Lungs: Clear to auscultation, Normal air movement, No rhonchi, No wheeze, No rales, Air entry diminished in bilateral lung bases Cardiovascular: Regular rate, Regular Rhythm, Normal S1, Normal S2, No murmurs Abdomen: Bowel Sounds Present, Soft, Non Tender, Non-Distended : No suprapubic tenderness or renal angle tenderness. Extremities: Capillary Refill Less than 3 Seconds, Edema - Bilateral lower leg edema Skin: No rashes, No breakdown Musculoskeletal: No Tenderness to Palpation of Joints or Extremities, Arthritic Changes Neurological: Cranial nerves II-XII grossly intact, Deep Tendon Reflexes 2+/4 and Symmetrical, Bilateral lower legs weakness, strength 4/5, left more than right. Psych/Mental Status: Appropriate, Flat Affect Vitals/I&O's: Vital Signs Temp Pulse Resp BP Pulse Ox 98.2 F 88 16 189/79 H 96 09/23/19 08:15 09/23/19 08:15 09/23/19 08:15 09/23/19 08:15 09/23/19 08:15 Oxygen Delivery Method Room Air Weight: 132 lb 0.91 oz Body Mass Index (BMI) 23.0 Finger Stick Blood Glucose 488 Intake and Output for Last 24 Hours 09/21/19 09/22/19 09/23/19 23:59 23:59 23:59 Intake Total 1000 / 1000 1362.5 / 1362.5 1100 / 1100 Output Total 850 / 850 800 / 800 Balance 1000 / 750 512.5 / 512.5 300 / 300 Microbiology Past 72 Hours 09/21/19 18:30 Urine, Clean Catch Urine Culture - Preliminary Culture exhibits no growth. Laboratory Results 09/22/19 16:15: POC Glucose 289 H 09/22/19 21:05: POC Glucose 267 H 09/23/19 01:42: POC Glucose 281 H 09/23/19 06:41: POC Glucose 245 H Current Medications Acetaminophen (Tylenol) 650 mg PO Q6H PRN PRN PRN Reason: Pain Score 1-10/Temp > 100.7 F Last Admin: 09/23/19 09:50 Dose: 650 mg Documented by: Bisacodyl (Dulcolax) 5 mg PO DAILY PRN PRN PRN Reason: Constipation Bisacodyl (Dulcolax) 10 mg RECTAL DAILY PRN PRN Reason: severe constipation Calamine/Phenol (Calmoseptine Ointment) 1 applic TOPICAL BID [facility]; Protocol Last Admin: 09/23/19 08:17 Dose: 1 applicatio Documented by: Cyanocobalamin (Vitamin B12) 1,000 mcg PO DAILY@0800 [facility] Last Admin: 09/23/19 08:17 Dose: 1,000 mcg Documented by: Dextrose (D50w Syringe) 0 gm IV X1 PRN; Protocol PRN Reason: Hypoglycemia Enoxaparin Sodium (Lovenox) 40 mg SC DAILY [facility] Last Admin: 09/23/19 08:17 Dose: 40 mg Documented by: Ergocalciferol (Vitamin D) 50,000 unit PO Q7D [facility] Last Admin: 09/22/19 11:19 Dose: 50,000 unit Documented by: Glucagon () 1 mg IM .X1 PRN PRN Reason: Hypoglycemia Sodium Chloride () 1,000 mls @ 75 mls/hr IV .[id number] [facility] Last Admin: 09/23/19 01:11 Dose: 75 mls/hr Documented by: Insulin Human Lispro (Humalog Kwikpen (Bkc)) 0 unit SC ACHS & 3AM [facility]; Protocol Last Admin: 09/23/19 06:42 Dose: 4 u Documented by: Lisinopril (Zestril) 5 mg PO DAILY [facility] Last Admin: 09/23/19 08:17 Dose: 5 mg Documented by: Melatonin (Melatonin) 3 mg PO QHS PRN PRN PRN Reason: INSOMNIA Nutritional Formula (Lactose Free) (Shahab Wolfke) 120 ml PO 4X/DAY [facility] Last Admin: 09/23/19 09:50 Dose: 120 ml Documented by: Nystatin (Mycostatin Powder) 1 applic TOPICAL BID [facility]; Protocol Last Admin: 09/23/19 08:18 Dose: 1 applicatio Documented by: Ondansetron HCl (Zofran) 4 mg IV Q8H PRN PRN PRN Reason: NAUSEA/VOMITING Polyethylene Glycol (Miralax) 17 gm PO DAILY [facility] Last Admin: 09/23/19 09:50 Dose: 17 gm Documented by: Potassium Chloride (K-Dur) 40 meq PO DAILYCM [facility] Last Admin: 09/23/19 08:17 Dose: 40 meq Documented by: Senna/Docusate Sodium (Senokot-S, Ynes-Colace) 2 tablet PO BID [facility] Last Admin: 09/23/19 09:50 Dose: 2 tablet Documented by: Sodium Chloride () 10 - 40 ml IV UD PRN PRN Reason: SALINE FLUSH Last Admin: 09/21/19 23:07 Dose: 10 ml Documented by: STROKE Vital Signs/Narrative: Vital Signs Temp Pulse Resp BP Pulse Ox 09/23/19 08:15 98.2 F 88 16 189/79 H 96 Medical Necessity - Tobacco Use Smoking Status: Never smoker Assessment/Plan All Active Problems (Last Reviewed 09/21/19 @ 21:[address] Fermin Erickson MD) Failure to thrive (Acute) Multiple falls (Acute) Hyperglycemia (Acute) The patient is a 74 year old F with a significant history of diabetes mellitus who was admitted for elevated blood sugar 524, A1c 9.0 along with multiple fall, inability to take care of herself. She also has loss of weight about 60 pounds and intermittent diarrhea and constipation for about 1 year 1. 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 Glucose has improved and latest 70 mg/dL. She does not remember exactly the dose of Lantus at home but currently is discontinued due to hypoglycemia. Continue Accu-Chek before meals and at bedtime cover with sliding scale lispro insulin 09/22: Blood sugar fluctuates. The most recent 459, 487. Patient is started on Lantus 30 units subcutaneous twice daily along with the sliding scale coverage. A1c 9.0. 2. Loss of weight, loss of appetite and lower extremity weakness suggestive of moderate protein calorie malnutrition: Drill Hand and spring encaser consult. PT and OT. TSH normal. Vitamin D low, 20 and B12 422. On vitamin D and B12 replacement 3. Acute kidney injury most probably prerenal secondary to diarrhea: Last creatinine was 0.57 in July 2019 and admitted with creatinine 1.35. Creatinine improved 0.75. KAREN resolved. 4. Multiple recurrent falls probably secondary to generalized weakness, lower leg edema due to hypoalbuminemia: Albumin is 2.9. Rest as mentioned above 5. Stage I pressure ulcer at coccyx: No skin breakdown but non-blanchable skin redness. Calmoseptine ordered. Poison change every 2 hours. Patient with some redness at the coccyx. Calmoseptine ordered. 6. Occult blood in UA: UA is negative for RBC and WBC. LE and nitrite negative. CK 33. DVT prophylaxis: Lovenox 40 mg subcu daily Total time of the visit including total time spent in counseling or coordination of care, (more than 50% of the total time, spent in obtaining medical information from nurses and other ancillary care providers), , review of labs and imaging is 30 minutes Inpatient E&M: [id number] Subs Hosp L2
[2019-09-23] MEDS: Insulin Lispro 100 UNIT/ML INSULN.PEN 15 UNIT SC (12:24)
--- NOTE | 2019-09-23 13:16 | CASEMGMT ---
Addendum entered by Edelmira Garvey 09/23/19 14:51: SW attempted to meet with pt again regarding advanced directives. SW soundly sleeping, didn't wake up when this worker entered the room. SW will attempt to meet with pt again as time allows regarding advanced directives. Addendum entered by Edelmira Garvey 09/23/19 13:54: SW received call from Danica at [facility] stating they are utilizing the COVID waiver and pt will not need three midnight and can discharge when COVID results are available. Original Note: Social Work Note MARCELLUS received call from Danica at [facility]. Danica asked when pt was discharged from [facility]. MARCELLUS in to speak with pt. Pt states she discharged 2.5-3 weeks ago. MARCELLUS updated Danica of this. Danica states pt is in her 30 day discharged from SNF and is able to admit to [facility] when ready and when results of COVID is available. MARCELLUS updated Danica that COVID results are still pending. MARCELLUS updated pt on acceptance to [facility]. Pt states understanding. MARCELLUS called pt's Enrike and updated him on acceptance to [facility]. Enrike states understanding. Plan: [facility] once COVID results are back and pt is medically cleared. Edelmira Garvey SLEEPING CAR CONDUCTOR, RATTLESNAKE FARMER
[2019-09-23 14:20] VITALS: BP 153/69; PULSE 86; RESP 18; TEMP 36.9; O2SAT 96
--- NOTE | 2019-09-23 15:29 | CHAPLAIN ---
Type of Pastoral Visit _x__ Initial Visit ___ Follow-up Visit ___ On-call Visit ___ General Patient Visit ___ Spiritual Assessment ___ Family Conference ___ Bereavement ___ Rapid Response ___ Code Blue ___ Other (describe below) Pastoral Care Referral From _x__ Patient ___ Family ___ Nurse ___ Physician ___ Stage Manager ___ Stamp Maker ___ Other (describe below) Sacrament/Intervention _x__ Active listening ___ Anointing ___ Restoration ___ Bereavement ___ Communion _x__ Yelena exploration ___ ___ Life review _x__ Prayer ___ Reconciliation ___ Sacrament of Sick _x__ Supportive presence ___ Wedding ___ Other (describe below) Pastoral Comments patient states that she remembers this rug cleaner from a previous admission in [facility]; pt states her recent health, falls, and need for placement in SNF; pt says she is going to [place] for placement; pt is talkative and pleasant; pt identifies as a Adventism and welcomes spiritual support; pt welcomes prayer and states that she is 'thankful for coming to see me'; no other concerns identified at this time
[2019-09-23 16:08] LABS: Creatine Kinase MB 0 % (0-3); Creatine Kinase MM 100 % (97-100); Macro I 0 % (Not Observed); Macro II 0 % (Not Observed)
[2019-09-23 16:26] LABS: Bedside Glucose 249 mg/dL (70-110)
[2019-09-23 23:00] VITALS: BP 186/102; PULSE 89; RESP 18; TEMP 36.8; O2SAT 98
[2019-09-24 01:15] LABS: Bedside Glucose 268 mg/dL (70-110)
[2019-09-24] MEDS: Insulin Lispro 100 UNIT/ML INSULN.PEN SC ×4 (02:51→22:06)
[2019-09-24] MEDS: 0.9% Normal Saline 1,000 ML 75 ML IV ×2 (02:54→15:41)
[2019-09-24 02:55] VITALS: BP 154/78; PULSE 83; RESP 16; TEMP 36.7; O2SAT 97
[2019-09-24 04:21] LABS: Bedside Glucose 173 mg/dL (70-110)
[2019-09-24 06:50] LABS: Bedside Glucose 115 mg/dL (70-110)
[2019-09-24] MEDS: Menthol/Lanolin/Calamine/Znox 113 GM Tube 1 APPLIC TOPICAL ×2 (08:21→22:11)
[2019-09-24] MEDS: Cyanocobalamin 500 MCG Tablet 1000 MCG PO (08:21)
[2019-09-24] MEDS: Glucerna Shake 120 ML LIQUID PO ×4 (08:22→22:04)
[2019-09-24] MEDS: Enoxaparin 40 MG/0.4 ML Syringe SC (08:22)
[2019-09-24] MEDS: Nystatin Powder 15gm Bottle 1 APPLIC TOPICAL ×2 (08:23→22:07)
[2019-09-24] MEDS: Lisinopril 5 MG Tablet PO ×3 (08:23→15:41)
[2019-09-24] MEDS: Senna/Docusate Sodium 1 Tablet 2 TABLET PO ×2 (08:25→22:06)
[2019-09-24] MEDS: Polyethylene Glycol 3350 17 GM PACKET PO (08:25)
[2019-09-24 08:30] VITALS: BP 181/81; PULSE 88; RESP 16; TEMP 36.4; O2SAT 98
[2019-09-24] MEDS: Acetaminophen 325 MG Tablet 650 MG PO (08:35)
--- NOTE | 2019-09-24 09:54 | CASEMGMT ---
Social Work SW met with pt and attempted to review advance directives. Pt stating she does not feel well enough to complete at this time and would like assistance in making decisions. SW left AD rack card with pt and encouraged pt to call SW once she is home and feeling better and pt and spouse can set up appointment with SW for advanced care planning. SW also confirmed with pt d/c plan to [facility] and pt is agreeable. Covid results are pending. Plan: [facility], Pending Covid results ERIBERTO Posada
[2019-09-24 10:47] VITALS: O2SAT 96
--- NOTE | 2019-09-24 11:50 | PN_ITS ---
Patient Problems: Active and Suspected Problems (Last Reviewed 09/21/19 @ 21:[address] Fermin Erickson MD) Failure to thrive (Acute) Multiple falls (Acute) Hyperglycemia (Acute) Reason for Visit: Follow-up for fall and failure to thrive. Objective: Blood pressure is high. Lisinopril dose increased to 10 mg with hydralazine 10 mg IV every 4 hourly. For systolic blood pressure more than 180. Patient also complained of constipation and she is on bowel regimen of senna S, MiraLAX, Dulcolax p.o. and rectal suppository. Vitals/I&O's: Vital Signs Temp Pulse Resp BP Pulse Ox 97.5 F L 88 16 181/81 H 96 09/24/19 08:30 09/24/19 08:30 09/24/19 08:30 09/24/19 08:30 09/24/19 10:47 Oxygen Delivery Method Room Air Weight: 132 lb 0.91 oz Body Mass Index (BMI) 23.0 Finger Stick Blood Glucose 488 Intake and Output for Last 24 Hours 09/22/19 09/23/19 09/24/19 23:59 23:59 23:59 Intake Total 1362.5 / 1362.5 2721.25 / 3021.25 1577.5 / 1577.5 Output Total 850 / 850 1750 / 2550 1400 / 1400 Balance 512.5 / 512.5 971.25 / 471.25 177.5 / 177.5 General: Alert, Oriented x3, Cooperative HEENT: Atraumatic, PERRLA, EOMI, Normocephalic Neck: Supple, No JVD, Negative Carotid Bruits Lungs: Clear to auscultation, No rhonchi, No wheeze, No rales, Diminished - Air entry diminished in bilateral lung bases. Cardiovascular: Regular rate, No murmurs Abdomen: Bowel Sounds Present, Soft, Non Tender, Non-Distended Extremities: No edema, Capillary Refill Less than 3 Seconds Skin: No rashes, No breakdown, - - Non-blanchable erythema over coccyx region, stage I pressure ulcer. Musculoskeletal: No Tenderness to Palpation of Joints or Extremities Neurological: Cranial nerves II-XII grossly intact, Deep Tendon Reflexes 2+/4 and Symmetrical, Neuro grossly intact, - - Mild bilateral lower extremity weakness, strength 4/5, left more than right. Psych/Mental Status: Normal Affect, Appropriate Microbiology Past 72 Hours 09/21/19 18:30 Urine, Clean Catch Urine Culture - Final Culture exhibits no growth. Laboratory Results 09/23/19 15:46: POC Glucose 249 H 09/23/19 23:25: POC Glucose 268 H 09/24/19 02:49: POC Glucose 173 H 09/24/19 06:43: POC Glucose 115 H Current Medications Acetaminophen (Tylenol) 650 mg PO Q6H PRN PRN PRN Reason: Pain Score 1-10/Temp > 100.7 F Last Admin: 09/24/19 08:35 Dose: 650 mg Documented by: Bisacodyl (Dulcolax) 5 mg PO DAILY PRN PRN PRN Reason: Constipation Bisacodyl (Dulcolax) 10 mg RECTAL DAILY PRN PRN Reason: severe constipation Calamine/Phenol (Calmoseptine Ointment) 1 applic TOPICAL BID [facility]; Protocol Last Admin: 09/24/19 08:21 Dose: 1 applicatio Documented by: Cyanocobalamin (Vitamin B12) 1,000 mcg PO DAILY@0800 [facility] Last Admin: 09/24/19 08:21 Dose: 1,000 mcg Documented by: Dextrose (D50w Syringe) 0 gm IV X1 PRN; Protocol PRN Reason: Hypoglycemia Enoxaparin Sodium (Lovenox) 40 mg SC DAILY [facility] Last Admin: 09/24/19 08:22 Dose: 40 mg Documented by: Ergocalciferol (Vitamin D) 50,000 unit PO Q7D [facility] Last Admin: 09/22/19 11:19 Dose: 50,000 unit Documented by: Glucagon () 1 mg IM .X1 PRN PRN Reason: Hypoglycemia Sodium Chloride () 1,000 mls @ 75 mls/hr IV .[id number] [facility] Last Admin: 09/24/19 02:54 Dose: 75 mls/hr Documented by: Insulin Glargine (Lantus (Bkc)) 30 units SC BID [facility] Last Admin: 09/24/19 08:22 Dose: 30 units Documented by: Insulin Human Lispro (Humalog Kwikpen (Bk)) 0 unit SC ACHS & 3AM [facility]; Protocol Last Admin: 09/24/19 10:47 Dose: 6 u Documented by: Lisinopril (Zestril) 5 mg PO DAILY [facility] Last Admin: 09/24/19 08:23 Dose: 5 mg Documented by: Melatonin (Melatonin) 3 mg PO QHS PRN PRN PRN Reason: INSOMNIA Nutritional Formula (Lactose Free) (Glucerna Shake) 120 ml PO 4X/DAY [facility] Last Admin: 09/24/19 08:22 Dose: 120 ml Documented by: Nystatin (Mycostatin Powder) 1 applic TOPICAL BID [facility]; Protocol Last Admin: 09/24/19 08:23 Dose: 1 applicatio Documented by: Ondansetron HCl (Zofran) 4 mg IV Q8H PRN PRN PRN Reason: NAUSEA/VOMITING Polyethylene Glycol (Miralax) 17 gm PO DAILY [facility] Last Admin: 09/24/19 08:25 Dose: 17 gm Documented by: Potassium Chloride (K-Dur) 40 meq PO DAILYCM [facility] Last Admin: 09/24/19 08:21 Dose: 40 meq Documented by: Senna/Docusate Sodium (Senokot-S, Yens-Colace) 2 tablet PO BID [facility] Last Admin: 09/24/19 08:25 Dose: 2 tablet Documented by: Sodium Chloride () 10 - 40 ml IV UD PRN PRN Reason: SALINE FLUSH Last Admin: 09/21/19 23:07 Dose: 10 ml Documented by: STROKE Vital Signs/Narrative: Vital Signs Temp Pulse Resp BP Pulse Ox 09/24/19 10:47 96 09/24/19 08:30 97.5 F L 88 16 181/81 H 98 Medical Necessity - Tobacco Use Smoking Status: Never smoker Assessment/Plan All Active Problems (Last Reviewed 09/21/19 @ 21:[address] Fermin Erickson MD) Failure to thrive (Acute) Multiple falls (Acute) Hyperglycemia (Acute) The patient is a 74 year old F with a significant history of diabetes mellitus who was admitted for elevated blood sugar 524, A1c 9.0 along with multiple fall, inability to take care of herself. She also has loss of weight about 60 pounds and intermittent diarrhea and constipation for about 1 year 1. 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 Glucose has improved and latest 70 mg/dL. She does not remember exactly the dose of Lantus at home but currently is discontinued due to hypoglycemia. Continue Accu-Chek before meals and at bedtime cover with sliding scale lispro insulin 09/22: Blood sugar fluctuates. The most recent 459, 487. Patient is started on Lantus 30 units subcutaneous twice daily along with the sliding scale coverage. A1c 9.0. 09/23: Her blood sugars are controlled. Sliding scale increased to high. 2. Loss of weight, loss of appetite and lower extremity weakness suggestive of moderate protein calorie malnutrition: Scale Reclamation Tender and correctional casework specialist consult. PT and OT. TSH normal. Vitamin D low, 20 and B12 422. On vitamin D and B12 replacement 3. Acute kidney injury most probably prerenal secondary to diarrhea: Last creatinine was 0.57 in July 2019 and admitted with creatinine 1.35. Creatinine improved 0.75. KAREN resolved. 4. Multiple recurrent falls probably secondary to generalized weakness, lower leg edema due to hypoalbuminemia: Albumin is 2.9. Rest as mentioned above 5. Stage I pressure ulcer at coccyx: No skin breakdown but non-blanchable skin redness. Calmoseptine ordered. Posture change every 2 hours. Patient with some redness at the coccyx. Calmoseptine ordered. 6. Hypertension: Blood pressure elevated 186/102. Hydralazine 10 mg IV 1 dose now. Lisinopril dose increased to 10 mg daily. Started on HCTZ 12.5 mg daily. Monitor blood pressure and titrate dose accordingly. Occult blood in UA: UA is negative for RBC and WBC. LE and nitrite negative. CK 33. DVT prophylaxis: Lovenox 40 mg subcu daily Patient has COVID-19 PCR test pending. Plan is discharged to SNF. Total time of the visit including total time spent in counseling or coordination of care, (more than 50% of the total time, spent in obtaining medical information from nurses and other ancillary care providers), , review of labs and imaging is 30 minutes Inpatient E&M: 70393 Subs Hosp L2
[2019-09-24 11:55] LABS: Bedside Glucose 292 mg/dL (70-110)
[2019-09-24 12:45] LABS: Myoglobin, Serum 27 ng/mL (25-58)
[2019-09-24 12:46] LABS: Creatine Kinase BB 0 % (0); Creatine Kinase,Total,Serum 26 U/L (32-182)
[2019-09-24] MEDS: hydroCHLOROthiazide 12.5mg 12.5 MG PO (13:12)
[2019-09-24] MEDS: Bisacodyl 5 MG Tablet PO (13:12)
--- NOTE | 2019-09-24 14:54 | PCM.TXEXTCAR ---
- Diet 09/22/19 10:55 Diet: Regular Diet Is pt able to select menu?: No Diet Comments: Not to exceed 5 CHO servings/meal; OK for regular sugar d/t allergy - Routine Orders/Code Status Suppository Type: Dulcolax 10mg Suppository Frequency: Daily PRN Routine Lab Work: CBC, BMP - weekly Code Status: Full Code - Therapies Weight Bearing: Weight bearing as tolerated Physical Therapy: Eval and Treat Occupational Therapy: Eval and Treat Speech Therapy: Eval and Treat - Allergies/Procedures Done in Hospital Allergies/Adverse Reactions: Allergies shellfish derived Allergy (Severe, Verified 09/21/19 17:09) swelling in throat Penicillins [PCN] Allergy (Verified 09/21/19 17:09) Shortness of breath artificial sweeteners Adverse Reaction (Uncoded 09/21/19 17:09) headaches - Type of Care/Length of Stay Estimated LOS: Convalescent Care Less Than 30 days Type of Care Needed: Skilled Rehab Potential: Good Prognosis: Good - Additional Orders/Day of Discharge Additional Orders: Patient on diuretic. Adjust potassium based on BMP Day of Discharge: 09/24/19 - Dietary and Speech Recommendations Dietitian Recommendations/Changes: Will change diet to regular d/t malnutrition, allergy to artificial sweeteners. Will limit pt to no more than 5 servings of CHO/meal to prevent hyperglycemia d/t excessive CHO intake. Will switch ONS from Glucerna to Ensure Enlive d/t allergy to artificial sweeteners. - Follow Up Care Primary Care Physician: Care Physician,No Primary [Primary Care Provider] - Please follow up with your Primary Care Physician in: IN 2 WEEKS
--- NOTE | 2019-09-24 14:56 | PCM.DC.SUM ---
Discharge Date and Diagnosis - Problem List Patient Problems: Active and Suspected Problems (Last Reviewed 09/21/19 @ 21:[address] Fermin Erickson MD) Failure to thrive (Acute) Multiple falls (Acute) Hyperglycemia (Acute) Date of Admission: 09/21/19 Date of Discharge: 09/24/19 - Primary Discharge Diagnosis Acute Problems: Active Problems (Last Reviewed 09/21/19 @ 21:[address] Fermin Erickson MD) Failure to thrive (Acute) Multiple falls (Acute) Hyperglycemia (Acute) - Secondary Discharge Diagnosis Chronic Problems: Chronic Problems (Last Reviewed 09/21/19 @ 21:[address] Fermin Erickson MD) Diabetes mellitus with hyperglycemia (Chronic) Diabetes mellitus (Chronic) Type 2 diabetes mellitus (Chronic) Hypertension (Chronic) Hospital Course and Treatment Operations: None Summary of Care Provided: The patient is a 74 year old F [] Patient Problems: Active and Suspected Problems (Last Reviewed 09/21/19 @ 21:[address] Fermin Erickson MD) Failure to thrive (Acute) Multiple falls (Acute) Hyperglycemia (Acute) - Physical Exam Vitals/I&O's: Vital Signs Temp Pulse Resp BP Pulse Ox 97.5 F L 88 16 181/81 H 96 09/24/19 08:30 09/24/19 08:30 09/24/19 08:30 09/24/19 08:30 09/24/19 10:47 Oxygen Delivery Method Room Air Weight: 132 lb 0.91 oz Body Mass Index (BMI) 23.0 Finger Stick Blood Glucose 488 Intake and Output for Last 24 Hours 09/22/19 09/23/19 09/24/19 23:59 23:59 23:59 Intake Total 1362.5 / 1362.5 2721.25 / 3021.25 1577.5 / 1577.5 Output Total 850 / 850 1750 / 2550 1400 / 1400 Balance 512.5 / 512.5 971.25 / 471.25 177.5 / 177.5 Microbiology Past 72 Hours 09/21/19 18:30 Urine, Clean Catch Urine Culture - Final Culture exhibits no growth. Laboratory Results 09/22/19 06:39: CK Isoenzymes 26 L, CK-MM (CK-3) 100, CK-MB (CK-2) 0, CK-BB (CK-1) 0, Macro CK Type I 0, Macro CK Type II 0 09/22/19 06:39: Myoglobin 27 09/23/19 15:46: POC Glucose 249 H 09/23/19 23:25: POC Glucose 268 H 09/24/19 02:49: POC Glucose 173 H 09/24/19 06:43: POC Glucose 115 H 09/24/19 10:47: POC Glucose 292 H Current Medications Acetaminophen (Tylenol) 650 mg PO Q6H PRN PRN PRN Reason: Pain Score 1-10/Temp > 100.7 F Last Admin: 09/24/19 08:35 Dose: 650 mg Documented by: Bisacodyl (Dulcolax) 5 mg PO DAILY PRN PRN PRN Reason: Constipation Last Admin: 09/24/19 13:12 Dose: 5 mg Documented by: Bisacodyl (Dulcolax) 10 mg RECTAL DAILY PRN PRN Reason: severe constipation Calamine/Phenol (Calmoseptine Ointment) 1 applic TOPICAL BID [facility]; Protocol Last Admin: 09/24/19 08:21 Dose: 1 applicatio Documented by: Cyanocobalamin (Vitamin B12) 1,000 mcg PO DAILY@0800 [facility] Last Admin: 09/24/19 08:21 Dose: 1,000 mcg Documented by: Dextrose (D50w Syringe) 0 gm IV X1 PRN; Protocol PRN Reason: Hypoglycemia Enoxaparin Sodium (Lovenox) 40 mg SC DAILY [facility] Last Admin: 09/24/19 08:22 Dose: 40 mg Documented by: Ergocalciferol (Vitamin D) 50,000 unit PO Q7D [facility] Last Admin: 09/22/19 11:19 Dose: 50,000 unit Documented by: Glucagon () 1 mg IM .X1 PRN PRN Reason: Hypoglycemia Hydralazine HCl (Apresoline Iv) 10 mg IV Q4H PRN PRN PRN Reason: SBP more than 180 mmHg Hydrochlorothiazide () 12.5 mg PO DAILY [facility] Sodium Chloride () 1,000 mls @ 75 mls/hr IV .[id number] [facility] Last Admin: 09/24/19 02:54 Dose: 75 mls/hr Documented by: Insulin Glargine (Lantus (Bkc)) 35 units SC 1100 [facility] Insulin Glargine (Lantus (Bk)) 30 units SC DINNER [facility] Insulin Human Lispro (Humalog Kwikpen ([facility])) 0 unit SC ACHS & 3AM [facility]; Protocol Last Admin: 09/24/19 10:47 Dose: 6 u Documented by: Lisinopril (Zestril) 10 mg PO DAILY [facility] Melatonin (Melatonin) 3 mg PO QHS PRN PRN PRN Reason: INSOMNIA Nutritional Formula (Lactose Free) (Glucerna Shake) 120 ml PO 4X/DAY [facility] Last Admin: 09/24/19 13:12 Dose: 120 ml Documented by: Nystatin (Mycostatin Powder) 1 applic TOPICAL BID [facility]; Protocol Last Admin: 09/24/19 08:23 Dose: 1 applicatio Documented by: Ondansetron HCl (Zofran) 4 mg IV Q8H PRN PRN PRN Reason: NAUSEA/VOMITING Polyethylene Glycol (Miralax) 17 gm PO DAILY [facility] Last Admin: 09/24/19 08:25 Dose: 17 gm Documented by: Potassium Chlor[facility] (K-Dur) [facility] Last Admin: 09/24/19 08:21 Dose: 40 meq Documented by: Senna/Docusate Sodium (Senokot-S, Ynes-Colace) 2 tablet PO BID [facility] Last Admin: 09/24/19 08:25 Dose: 2 tablet Documented by: Sodium Chloride () 10 - 40 ml IV UD PRN PRN Reason: SALINE FLUSH Last Admin: 09/21/19 23:07 Dose: 10 ml Documented by: Home Medications: Medications to take at Discharge Acetaminophen [Tylenol] 500 mg PO TID PRN PRN 09/21/19 Bisacodyl [Dulcolax] 5 mg PO DAILY PRN PRN tab 09/24/19 Bisacodyl [Dulcolax] 10 mg RECTAL DAILY PRN suppos. 09/24/19 Cyanocobalamin [Vitamin B12] 1,000 mcg PO DAILY@0800 tab 09/24/19 Ergocalciferol [Vitamin D] 50,000 unit PO Q7D cap 09/24/19 Insulin Glargine [Lantus SoloStar Pen] 30 units SUBCUT DINNER pen 09/24/19 Insulin Glargine [Lantus SoloStar Pen] 35 units SUBCUT 1100 pen 09/24/19 Insulin Lispro [Humalog KwikPen] See Protocol SUBCUT ACHS & 3AM insuln.pen 09/24/19 Lisinopril [Zestril] 10 mg PO DAILY tab 09/24/19 Menthol/Lanolin/Calamine/Znox [Calmoseptine Ointment] 1 applic TOPICAL BID tube 09/24/19 Nystatin Powder [Mycostatin Powder] 1 applic TOPICAL BID bottle 09/24/19 Polyethylene Glycol 3350 [Miralax] 17 gm PO DAILY packet 09/24/19 Potassium Chloride [K-Dur] 20 meq PO DAILYCM tab 09/24/19 Senna/Docusate Sodium [Senokot-S] 2 tab PO BID tab 09/24/19 hydroCHLOROthiazide [Hydrochlorothiazide] 12.5 mg PO DAILY cap 09/24/19 Primary Care Physician: Care Physician,No Primary [Primary Care Provider] - Please follow up with your Primary Care Physician in: IN 2 WEEKS Medical Necessity - Tobacco Use Smoking Status: Never smoker
[2019-09-24 15:05] VITALS: BP 169/75; PULSE 94; RESP 16; TEMP 36.8; O2SAT 97
[2019-09-24 16:20] LABS: Bedside Glucose 239 mg/dL (70-110)
[2019-09-24 21:00] VITALS: BP 169/80; PULSE 87; RESP 16; TEMP 37.1; O2SAT 97
[2019-09-24 22:20] LABS: Bedside Glucose 160 mg/dL (70-110)
[2019-09-25 02:28] VITALS: BP 161/77; PULSE 99; RESP 16; TEMP 36.9; O2SAT 99
[2019-09-25 02:36] LABS: Bedside Glucose 82 mg/dL (70-110)
[2019-09-25] MEDS: 0.9% Normal Saline 1,000 ML 75 ML IV (05:31)
[2019-09-25 06:38] LABS: Absolute Lymphocyte Count 2.34 X10^3/uL (0.83-4.51); Absolute Neutrophil Count 4.2 X10^3/uL (2.0-7.7); Basophil# 0.03 X10^3/uL; Basophil% 0.4 % (0-1); Eosinophil# 0.13 X10^3/uL; Eosinophils% 1.8 % (0-5); Hematocrit 33.3 % (37-47); Lymphocyte # 2.34 X10^3/ul (4.0); Lymphocyte % 31.8 % (19-41); Mean Corpuscular Hgb 28.6 pg (27.0-32.0); Mean Corpuscular Volume 86.5 fL (81-99); Mean Platelet Vol. 9.6 fl (6.2-12.0); Monocyte# 0.68 X10^3/uL; Monocyte% 9.3 % (0-10); NRBC Flagged by Analyzer 0 % (0-5); Neutrophil # 4.15 X10^3/uL (2.7-7.7); Neutrophil % 56.4 % (47-70); Platelet Count 221 K/mm3 (150-450); RBC Distribution Width CV 12.4 % (11.6-14.6); RBC Distribution Width SD 38.8 fl (35.1-43.9); Red Blood Count 3.85 M/mm3 (4.2-5.4); White Blood Count 7.4 K/mm3 (4.4-11.0)
[2019-09-25 06:46] LABS: Bedside Glucose 133 mg/dL (70-110)
[2019-09-25 07:15] LABS: Anion Gap 5 (5-15); BUN 10 mg/dL (7-18); BUN/Creat Ratio 17.7 RATIO (10-20); Calcium,Total 8.4 mg/dL (8.5-10.1); Chloride 105 mmol/L (98-107); Creatinine, Serum 0.56 mg/dL (0.55-1.02); EST Glomerular Filtration Rate 111 mL/min (>60); Est Glom Filt Rate - Afr Amer 135 mL/min (>60); Estimated Creatinine Clearance 40.21 ml/min; Glucose 144 mg/dL (74-106); Potassium 3.5 mmol/L (3.5-5.1); Sodium Level 141 mmol/L (136-145)
[2019-09-25 07:33] VITALS: BP 165/80; PULSE 86; RESP 18; TEMP 36.8; O2SAT 98
[2019-09-25 07:37] VITALS: PULSE 80
[2019-09-25] MEDS: Senna/Docusate Sodium 1 Tablet 2 TABLET PO (07:53)
[2019-09-25] MEDS: Acetaminophen 325 MG Tablet 650 MG PO (07:53)
[2019-09-25] MEDS: Lisinopril 10 MG Tablet PO (07:53)
[2019-09-25] MEDS: hydroCHLOROthiazide 12.5mg 12.5 MG PO (07:54)
[2019-09-25] MEDS: Cyanocobalamin 500 MCG Tablet 1000 MCG PO (07:54)
[2019-09-25] MEDS: Bisacodyl 10 MG Suppository RECTAL (07:56)
[2019-09-25] MEDS: Menthol/Lanolin/Calamine/Znox 113 GM Tube 1 APPLIC TOPICAL (08:05)
[2019-09-25 09:40] LABS: Bedside Glucose 459 mg/dL (70-110)
[2019-09-25 09:40] LABS: Bedside Glucose 487 mg/dL (70-110)
[2019-09-25] MEDS: Nystatin Powder 15gm Bottle 1 APPLIC TOPICAL (09:58)
[2019-09-25] MEDS: Polyethylene Glycol 3350 17 GM PACKET PO (09:59)
[2019-09-25] MEDS: Enoxaparin 40 MG/0.4 ML Syringe SC (09:59)
--- NOTE | 2019-09-25 10:14 | PCM.TXEXTCAR ---
- Diet 09/22/19 10:55 Diet: Regular Diet Is pt able to select menu?: No Diet Comments: Not to exceed 5 CHO servings/meal; OK for regular sugar d/t allergy - Routine Orders/Code Status Code Status: Full Code - Therapies Physical Therapy: Eval and Treat Occupational Therapy: Eval and Treat - Allergies/Procedures Done in Hospital Allergies/Adverse Reactions: Allergies shellfish derived Allergy (Severe, Verified 09/21/19 17:09) swelling in throat Penicillins [PCN] Allergy (Verified 09/21/19 17:09) Shortness of breath artificial sweeteners Adverse Reaction (Uncoded 09/21/19 17:09) headaches Procedures: None - Type of Care/Length of Stay Estimated LOS: Convalescent Care Less Than 30 days Type of Care Needed: Skilled Rehab Potential: Good Prognosis: Good - Additional Orders/Day of Discharge Day of Discharge: 09/25/19 - Dietary and Speech Recommendations Dietitian Recommendations/Changes: Will change diet to regular d/t malnutrition, allergy to artificial sweeteners. Will limit pt to no more than 5 servings of CHO/meal to prevent hyperglycemia d/t excessive CHO intake. Will switch ONS from Glucerna to Ensure Enlive d/t allergy to artificial sweeteners. - Follow Up Care Primary Care Physician: Care Physician,No Primary [Primary Care Provider] -
--- NOTE | 2019-09-25 10:16 | DS.PCM_ITS ---
Discharge Date and Diagnosis - Problem List Patient Problems: Active and Suspected Problems (Last Reviewed 09/21/19 @ 21:[address] Fermin Erickson MD) Failure to thrive (Acute) Multiple falls (Acute) Hyperglycemia (Acute) Date of Admission: 09/21/19 Date of Discharge: 09/25/19 - Primary Discharge Diagnosis Acute Problems: Active Problems (Last Reviewed 09/21/19 @ 21:[address] Fermin Erickson MD) Failure to thrive (Acute) Multiple falls (Acute) Hyperglycemia (Acute) - Secondary Discharge Diagnosis Chronic Problems: Chronic Problems (Last Reviewed 09/21/19 @ 21:[address] Fermin Erickson MD) Diabetes mellitus with hyperglycemia (Chronic) Diabetes mellitus (Chronic) Type 2 diabetes mellitus (Chronic) Hypertension (Chronic) Hospital Course and Treatment Imaging Results: CT Brain: IMPRESSION: Moderate atrophy and advanced periventricular white matter ischemic changes. 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 No evidence for acute intracranial bleed Consults: None Operations: None Procedures: None Summary of Care Provided: Per HPI: The patient is a 74 year old F with a significant history of diabetes mellitus who presents to the emergency department with elevated blood glucose. Reportedly her blood glucose machine at home read high. Her gave her 15 units of insulin. The type of insulin is not known at this time. 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 On 18 September 2020 (her birthday) she fell 2 times. She sustained pain at her tailbone. She fell backwards. Imaging done by her PCP was unremarkable. Reportedly patient was confused at home. [facility] Hospital Course: 1. Failure to thrive with moderate protein calorie malnutrition/DM 2 with diabetic nephropathy/KAREN/BRN-66-meup-old female who presents from home with a noted blood sugar. Per family, they have been having difficulty taking care of her and on the which was her birthday, she fell twice. She is also had a significant weight loss as well as a decrease in appetite consistent with a moderate protein calorie malnutrition. Media Services Director was consulted and gave appropriate dietary recommendations. Her blood pressure was also elevated into the 180s therefore her lisinopril was increased and she was started on hydrochlorothiazide. Her creatinine has improved from the 1.31 down to 0.5 today on the day of discharge. She was discharged today because her COVID test finally came back as negative. She is stable to go to the nursing home facility today for rehab and eventual transfer back to home if able. We also made significant adjustments to her blood sugar medications, A1c was 9 and her admitting blood sugar was 524. On the day of discharge is 140. She is on Lantus 35 units in the morning and 30 units at night. Would recommend a BMP to monitor kidney function as an outpatient given the increase in her lisinopril as well as addition of hydrochlorothiazide. She was also started on vitamin D as her level was 20.3, and vitamin B12 supplementation for her level of 422. 2. Stage I pressure ulcer on her coccyx-no antibiotics needed, continue to change position every 2 hours and have wound evaluate patient on arrival to the nursing home facility 3. Her other medical diagnoses were evaluated and her home medications were continued where appropriate Patient Problems: Active and Suspected Problems (Last Reviewed 09/21/19 @ 21:[address] Fermin Erickson MD) Failure to thrive (Acute) Multiple falls (Acute) Hyperglycemia (Acute) - Physical Exam Vitals/I&O's: Vital Signs Temp Pulse Resp BP Pulse Ox 98.3 F 80 18 165/80 H 98 09/25/19 07:33 09/25/19 07:37 09/25/19 07:33 09/25/19 07:33 09/25/19 07:33 Oxygen Delivery Method Room Air Weight: 132 lb 0.91 oz Body Mass Index (BMI) 23.0 Finger Stick Blood Glucose 488 Intake and Output for Last 24 Hours 09/23/19 09/24/19 09/25/19 23:59 23:59 23:59 Intake Total 2721.25 / 3021.25 2936.25 / 3236.25 1300 / 1300 Output Total 1750 / 2550 2200 / 3200 1700 / 1700 Balance 971.25 / 471.25 736.25 / 36.25 -400 / -400 General: Alert, Oriented x3, Cooperative, No apparent distress HEENT: Atraumatic, PERRLA, EOMI, Normocephalic Oral: Moist Mucosa Neck: Supple, No JVD Lungs: Clear to auscultation, Normal air movement, No rhonchi, No wheeze, No rales, Diminished Cardiovascular: Regular rate, Regular Rhythm, Normal S1, Normal S2, No murmurs Abdomen: Soft, Non Tender, Non-Distended, No Hepato-splenomegaly Extremities: No edema, Capillary Refill Less than 3 Seconds Skin: - - Stage I pressure ulcer on the coccyx Neurological: Neuro grossly intact, Sensory exam intact to light touch and pain Psych/Mental Status: Normal Affect, Appropriate Microbiology Past 72 Hours 09/21/19 18:30 Urine, Clean Catch Urine Culture - Final Culture exhibits no growth. Laboratory Results 09/22/19 06:39: CK Isoenzymes 26 L, CK-MM (CK-3) 100, CK-MB (CK-2) 0, CK-BB (CK- 1) 0, Macro CK Type I 0, Macro CK Type II 0 09/22/19 06:39: Myoglobin 27 09/22/19 09:50: COVID-19 (VIVIANA) Not Detected 09/23/19 12:01: POC Glucose 459 H* 09/23/19 12:04: POC Glucose 487 H* 09/24/19 10:47: POC Glucose 292 H 09/24/19 15:43: POC Glucose 239 H 09/24/19 22:03: POC Glucose 160 H 09/25/19 02:32: POC Glucose 82 09/25/19 06:02: WBC 7.4, RBC 3.85 L, Hgb 11.0 L, Hct 33.3 L, MCV 86.5, MCH 28.6, MCHC 33.0, RDW Std Deviation 38.8, RDW Coeff of Feng 12.4, Plt Count 221, MPV 9.6, Immature Gran % (Auto) 0.300, Neut % (Auto) 56.4, Lymph % (Auto) 31.8, [place] % (Auto) 9.3, Eos % (Auto) 1.8, Baso % (Auto) 0.4, Absolute Neuts (auto) 4.2, Absolute Lymphs (auto) 2.34, Nucleated RBC % 0 09/25/19 06:02: Sodium 141, Potassium 3.5, Chloride 105, Carbon Dioxide 31.0, Anion Gap 5, BUN 10, Creatinine 0.56, Estim Creat Clear Calc 40.21, Est GFR (MDRD) Af Amer 135, Est GFR (MDRD) Non-Af 111, BUN/Creatinine Ratio 17.7, Glucose 144 H, Calcium 8.4 L 09/25/19 06:40: POC Glucose 133 H Current Medications Acetaminophen (Tylenol) 650 mg PO Q6H PRN PRN PRN Reason: Pain Score 1-10/Temp > 100.7 F Last Admin: 09/25/19 07:53 Dose: 650 mg Documented by: Bisacodyl (Dulcolax) 5 mg PO DAILY PRN PRN PRN Reason: Constipation Last Admin: 09/24/19 13:12 Dose: 5 mg Documented by: Bisacodyl (Dulcolax) 10 mg RECTAL DAILY PRN PRN Reason: severe constipation Last Admin: 09/25/19 07:56 Dose: 10 mg Documented by: Calamine/Phenol (Calmoseptine Ointment) 1 applic TOPICAL BID [facility]; Protocol Last Admin: 09/25/19 08:05 Dose: 1 applicatio Documented by: Cyanocobalamin (Vitamin B12) 1,000 mcg PO DAILY@0800 [facility] Last Admin: 09/25/19 07:54 Dose: 1,000 mcg Documented by: Dextrose (D50w Syringe) 0 gm IV X1 PRN; Protocol PRN Reason: Hypoglycemia Enoxaparin Sodium (Lovenox) 40 mg SC DAILY [facility] Last Admin: 09/25/19 09:59 Dose: 40 mg Documented by: Ergocalciferol (Vitamin D) 50,000 unit PO Q7D [facility] Last Admin: 09/22/19 11:19 Dose: 50,000 unit Documented by: Glucagon () 1 mg IM .X1 PRN PRN Reason: Hypoglycemia Hydralazine HCl (Apresoline Iv) 10 mg IV Q4H PRN PRN PRN Reason: SBP more than 180 mmHg Hydrochlorothiazide () 12.5 mg PO DAILY [facility] Last Admin: 09/25/19 07:54 Dose: 12.5 mg Documented by: Sodium Chloride () 1,000 mls @ 75 mls/hr IV .[id number] [facility] Last Admin: 09/25/19 05:31 Dose: 75 mls/hr Documented by: Insulin Glargine (Lantus (Bkc)) 35 units SC 1100 DIANNE Insulin Glargine (Lantus (Bkc)) 30 units SC DINNER [facility] Last Admin: 09/24/19 17:13 Dose: 30 units Documented by: Insulin Human Lispro (Humalog Kwikpen (Bkc)) 0 unit SC ACHS & 3AM [facility]; Protocol Last Admin: 09/25/19 06:44 Dose: Not Given Documented by: Lisinopril (Zestril) 10 mg PO DAILY [facility] Last Admin: 09/25/19 07:53 Dose: 10 mg Documented by: Melatonin (Melatonin) 3 mg PO QHS PRN PRN PRN Reason: INSOMNIA Nutritional Formula (Lactose Free) (Glucerna Shake) 120 ml PO 4X/DAY [facility] Last Admin: 09/25/19 07:57 Dose: Not Given Documented by: Nystatin (Mycostatin Powder) 1 applic TOPICAL BID [facility]; Protocol Last Admin: 09/25/19 09:58 Dose: 1 applicatio Documented by: Ondansetron HCl (Zofran) 4 mg IV Q8H PRN PRN PRN Reason: NAUSEA/VOMITING Polyethylene Glycol (Miralax) 17 gm PO DAILY [facility] Last Admin: 09/25/19 09:59 Dose: 17 gm Documented by: Potassium Chloride (K-Dur) 40 meq PO DAILYCM [facility] Last Admin: 09/25/19 07:53 Dose: 40 meq Documented by: Senna/Docusate Sodium (Senokot-S, Ynes-Colace) 2 tablet PO BID [facility] Last Admin: 09/25/19 07:53 Dose: 2 tablet Documented by: Sodium Chloride () 10 - 40 ml IV UD PRN PRN Reason: SALINE FLUSH Last Admin: 09/21/19 23:07 Dose: 10 ml Documented by: Home Medications: Medications to take at Discharge Acetaminophen [Tylenol] 500 mg PO TID PRN PRN 09/21/19 Bisacodyl [Dulcolax] 5 mg PO DAILY PRN PRN tab 09/24/19 Bisacodyl [Dulcolax] 10 mg RECTAL DAILY PRN suppos. 09/24/19 Cyanocobalamin [Vitamin B12] 1,000 mcg PO DAILY@0800 tab 09/24/19 Ergocalciferol [Vitamin D] 50,000 unit PO Q7D cap 09/24/19 Insulin Glargine [Lantus SoloStar Pen] 30 units SUBCUT DINNER pen 09/24/19 Insulin Glargine [Lantus SoloStar Pen] 35 units SUBCUT 1100 pen 09/24/19 Insulin Lispro [Humalog KwikPen] See Protocol SUBCUT ACHS & 3AM insuln.pen 09/24/19 Lisinopril [Zestril] 10 mg PO DAILY tab 09/24/19 Menthol/Lanolin/Calamine/Znox [Calmoseptine Ointment] 1 applic TOPICAL BID tube 09/24/19 Nystatin Powder [Mycostatin Powder] 1 applic TOPICAL BID bottle 09/24/19 Polyethylene Glycol 3350 [Miralax] 17 gm PO DAILY packet 09/24/19 Potassium Chloride [K-Dur] 20 meq PO DAILYCM tab 09/24/19 Senna/Docusate Sodium [Senokot-S] 2 tab PO BID tab 09/24/19 hydroCHLOROthiazide [Hydrochlorothiazide] 12.5 mg PO DAILY cap 09/24/19 Primary Care Physician: Care Physician,No Primary [Primary Care Provider] - Disposition: Nursing Home facility Minutes spent on discharge:: 35 Patient Condition:: Stable Medical Necessity - Tobacco Use Smoking Status: Never smoker Meaningful Use Info Meaningful Use Diagnoses (Choose all that apply): None applicable Inpatient E&M: 02156 Disch Hosp
--- NOTE | 2019-09-25 11:30 | NURSING ---
Report called to Caitlyn the receiving nurse at [facility].
[2019-09-25] MEDS: Insulin Lispro 100 UNIT/ML INSULN.PEN SC (11:38)
[2019-09-25 11:51] LABS: Bedside Glucose 247 mg/dL (70-110)
== END 2019-09-25 12:13 | disposition skilled nursing facility (03) | DRG 638 ==
LOC: ED 17:32 → MS3 20:58
PROVIDERS: Internal Medicine; Admitting Provider Hospitalist; Emergency Provider Emergency Medicine; Visit Provider Family Medicine
DX: E11.65 Type 2 diabetes mellitus with hyperglycemia (principal); N17.9 Acute kidney failure, unspecified; E44.0 Moderate protein-calorie malnutrition; E11.21 Type 2 diabetes mellitus with diabetic nephropathy; I10 Essential (primary) hypertension; R29.6 Repeated falls; R62.7 Adult failure to thrive; M19.90 Unspecified osteoarthritis, unspecified site; L89.151 Pressure ulcer of sacral region, stage 1; Z91.14 Patient's other noncompliance with medication regimen; M54.5 Low back pain; K52.9 Noninfective gastroenteritis and colitis, unspecified; Z68.23 Body mass index [BMI] 23.0-23.9, adult
CPT/HCPCS: 36415; 70450; 80048; 80053; 81001; 82009; 82306; 82550; 82552; 82607; 82962; 83036; 83735; 83874; 84100; 84443; 84484; 85025; 87086; 87635; 93005; 97110; 97162; 97166; 97530; 97535; 97802; 99285; G2023; J7030; A4216; J2405; U0003

== ENCOUNTER → 2021-01-10 07:58 | Outpatient (CLI) | payer MEDICARE, MEDICAID, OTHER, SELFPAY ==
[2021-01-10] VITALS (7 sets, daily range): BP systolic 178–194; BP diastolic 76–92; PULSE 81–89; RESP 16; TEMP 36.1–37.1; O2SAT 93–98; BMI 28.5
[2021-01-10] MEDS: Furosemide 20 MG/2 ML VIAL IV (11:34)
== END ==
PROVIDERS: Referring Provider Family Medicine; Visit Provider Family Medicine
DX: D64.9 Anemia, unspecified (principal)
CPT/HCPCS: 36430; 86850; 86900; 86901; 86920; 86922; J7040; P9016; A4216; J1940

== ENCOUNTER 2021-03-02 20:47 | Emergency (ER) | payer MEDICARE, OTHER, MEDICAID, SELFPAY ==
[2021-03-02 20:48] VITALS: BP 208/81; PULSE 911; RESP 21; O2SAT 94
[2021-03-02 20:49] VITALS: BP 208/81; PULSE 91; RESP 22; TEMP 36.8; O2SAT 94; BMI 31.4
--- NOTE | 2021-03-02 22:19 | EDS_ITS ---
HPI History of Present Illness Chief Complaint: Hypertension Narrative Narrative: Patient presenting with elevated blood pressures from her snf. Patient states she is completely asymptomatic other than this. She does relate that she has chronic intermittent dyspnea which is unchanged. She denies chest pain or palpitations. She denies fever or chills. She denies cough. She denies headache or lightheadedness. She denies visual complaints. She denies nausea or vomiting. [facility] Medical History Abdominal abscess Aphakia of left eye Arthritis Back problem Depression Diabetes Diabetic retinopathy Diverticulitis Dysphagia Essential tremor Hypertrophic osteoarthropathy Parkinsons disease Peripheral vascular disease Presbyopia Home Medications acetaminophen 500 mg PO TID PRN PRN 09/21/19 [History Last Taken 09/21/19] bisacodyl 5 mg PO DAILY PRN PRN tab 09/24/19 [Rx Last Taken Unknown] bisacodyl 10 mg RECTAL DAILY PRN suppos. 09/24/19 [Rx Last Taken Unknown] cyanocobalamin (vitamin B-12) 1,000 mcg PO DAILY@0800 tab 09/24/19 [Rx Last Taken Unknown] ergocalciferol (vitamin D2) 50,000 unit PO Q7D cap 09/24/19 [Rx Last Taken Unknown] lisinopril 10 mg PO DAILY tab 09/24/19 [Rx Last Taken Unknown] nystatin 1 applic TOPICAL BID bottle 09/24/19 [Rx Last Taken Unknown] polyethylene glycol 3350 17 gm PO DAILY packet 09/24/19 [Rx Last Taken Unknown] ascorbic acid (vitamin C) 500 mg PO BID 03/02/21 [History Last Taken Unknown] atorvastatin 40 mg PO DAILY 03/02/21 [History Last Taken Unknown] calcium carbonate-vitamin D3 [Calcium 600 + D(3)] 1 tab PO BID 03/02/21 [History Last Taken Unknown] carbidopa-levodopa [Sinemet CR] 1 tab PO TID 03/02/21 [History Last Taken Unknown] cholecalciferol (vitamin D3) [Vitamin D3] 125 mcg PO DAILY 03/02/21 [History Last Taken Unknown] ferrous sulfate 325 mg PO BID 03/02/21 [History Last Taken Unknown] furosemide [Lasix] 20 mg PO DAILY 03/02/21 [History Last Taken Unknown] insulin glargine [Lantus Solostar U-100 Insulin] 30 units SC 1100 03/02/21 [History Last Taken Unknown] lisinopril 20 mg PO DAILY #30 tab 03/02/21 [Rx Last Taken Unknown] omeprazole 20 mg PO DAILY 03/02/21 [History Last Taken Unknown] Allergy/AdvReac Type Severity Reaction Status Date / Time shellfish derived Allergy Severe swelling Verified 03/02/21 20:48 in throat Penicillins [PCN] Allergy Shortness Verified 03/02/21 20:48 of breath artificial sweeteners AdvReac headaches Uncoded 09/21/19 17:09 Family History Father Arthritis Mother Diabetes Sister Diabetes Surgical History History of abscess of skin and subcutaneous tissue Social History Smoking Status: Never smoker ROS ROS ED Constitutional Constitutional ED: Denies chills, fever(s) or sweats Eyes Eyes: Denies blurry vision or change in vision ENT ENT ED: Denies ear pain or sore throat Cardiovascular Cardiovascular: Denies chest pain, palpitations or racing heartbeat Respiratory/Chest Respiratory/Chest: Denies cough, dyspnea or sputum Gastrointestinal Gastrointestinal: Denies abdominal pain, constipation, diarrhea, nausea or vomiting Genitourinary Genitourinary ED: Denies dysuria, hematuria or urinary frequency Musculoskeletal Musculoskeletal: Denies arthralgias, myalgias or neck pain Integumentary Denies abscess, Abrasions or rash Neurologic Neurologic: Denies headache(s), paresthesias or weakness Psychiatric Psychiatric: Denies anxiety or depression Endocrine Endocrinology: Denies polydipsia or polyuria EXAM Physical Exam Const Vital Signs: 03/02/21 20:48 03/02/21 20:49 Temperature 98.3 F Temperature Source Oral Pulse Rate 911 H 91 Respiratory Rate 21 H 22 H Blood Pressure 208/81 H 208/81 H Blood Pressure Mean 123 123 Pulse Ox 94 94 Oxygen Delivery Method Room Air Room Air Positive well nourished and oriented x3 General Appearance ED: Negative for pallor HEENT Reports normocephalic Eyes PERRL and EOMs intact bilaterally Neck no lymphadenopathy and supple Chest Wall inspection of chest normal and palpation of chest normal Resp normal respiratory effort and clear to auscultation bilaterally Auscultation: Negative for rales, rhonchi or wheezes Cardio regular rate and regular rhythm GI normal to inspection, nondistended, normoactive bowel sounds and non-distended Auscultation: normoactive bowel sounds Palpation: soft Narrative: Deferred Back/Spine no CVA tenderness Extremity normal to inspection General Extremety ED: Negative for edema or tenderness General Extremity: Negative for edema Neuro oriented x3, CN's II-XII intact bilaterally and moves all extremities Sensorium / Orientation: alert Motor Exam: strength 5/5 throughout Psych mental status grossly normal Attitude: No agitated Skin no rashes or lesions noted and no wounds General Skin Exam: Negative for jaundice or pallor MDM MDM MDM Narrative Medical decision making narrative: Patient presenting with asymptomatic hypertension. She is on lisinopril 10 mg p.o. daily and Lasix 20 mg p.o. daily. Her blood pressure is 193/80 on my evaluation. She has no complaints. I spoke with her primary care provider, Dr. Herrmann, and she said it was reported to her that the patient was having chest pain. After speaking with her I went back and evaluated the patient and she states that she has not had any chest pain she has not had any new symptoms. She feels otherwise well. I did attempt to call her physician back however I have not received a return phone call. Since she does not require blood work and imaging and more acute intervention I will double her lisinopril and send her back to her facility. Impression: 1. Hypertension, established?[id number] Discharge Plan Triage Chief Complaint: Hypertension ED Provider: Gilles Mclain Dx/Rx/DC Orders Instructions: ED Hypertension, Established Prescriptions: New lisinopril 20 mg tablet 20 mg PO DAILY Qty: 30 RF: 0 No Action acetaminophen 500 MG tablet 500 mg PO TID PRN PRN (Reason: Pain Or Fever) RF: 0 polyethylene glycol 3350 17 GM packet 17 gm PO DAILY RF: 0 cyanocobalamin (vitamin B-12) 500 MCG tablet 1,000 mcg PO DAILY@0800 RF: 0 bisacodyl 10 MG suppository 10 mg RECTAL DAILY PRN (Reason: severe constipation) RF: 0 lisinopril 10 MG tablet 10 mg PO DAILY RF: 0 bisacodyl 5 MG tablet 5 mg PO DAILY PRN PRN (Reason: Constipation) RF: 0 ergocalciferol (vitamin D2) 50,000 UNIT capsule 50,000 unit PO Q7D RF: 0 nystatin 1 APPLIC bottle 1 applic topical BID RF: 0 atorvastatin 40 mg Tablet 40 mg PO DAILY RF: 0 carbidopa-levodopa [Sinemet CR] 25-100 mg Tablet Extended Release 1 tab PO TID RF: 0 calcium carbonate-vitamin D3 [Calcium 600 + D(3)] 600 mg(1,500mg) -200 unit Tablet 1 tab PO BID RF: 0 ascorbic acid (vitamin C) 500 mg Tablet 500 mg PO BID RF: 0 ferrous sulfate 325 mg (65 mg iron) Tablet 325 mg PO BID RF: 0 omeprazole 20 mg Capsule,Delayed Release(Dr/Ec) 20 mg PO DAILY RF: 0 furosemide [Lasix] 20 mg Tablet 20 mg PO DAILY RF: 0 cholecalciferol (vitamin D3) [Vitamin D3] 125 mcg (5,000 unit) Tablet 125 mcg PO DAILY RF: 0 Lantus Solostar U-100 Insulin 100 UNITS/ML insulin pen 30 units SC 1100 RF: 0 Primary Care Provider: Luiz Salguero Referrals: Luiz Salguero [Primary Care Provider] - Disposition Disposition: Home, Self Care
[2021-03-02 22:45] VITALS: BP 184/78; PULSE 83; RESP 16; TEMP 37.2; O2SAT 94
[2021-03-02 23:11] VITALS: BP 174/68; PULSE 76; RESP 20; O2SAT 91
[2021-03-02] MEDS: Lisinopril 10 MG Tablet PO (23:16)
[2021-03-02 23:56] VITALS: BP 179/69
== END 2021-03-02 23:57 | disposition home or self-care (01) ==
PROVIDERS: Emergency Provider Student in an Organized Health Care Education/Training Program
DX: I10 Essential (primary) hypertension (principal); E11.51 Type 2 diabetes mellitus with diabetic peripheral angiopathy without gangrene; E11.319 Type 2 diabetes mellitus with unspecified diabetic retinopathy without macular edema; G20 Parkinson's disease; Z79.4 Long term (current) use of insulin; Z79.899 Other long term (current) drug therapy
CPT/HCPCS: 99283